=== PATIENT | male | born 1950 | race Caucasian/White ===

== ENCOUNTER 2020-10-16 08:44 | Day surgery (SDC) | payer MEDICARE, OTHER, SELFPAY ==
[2020-10-10 11:29] VITALS: BMI 24.6
--- NOTE | 2020-10-15 10:01 | HO.ANESPROP2 ---
Documented by User: Raiza Bautista 10/15/20 10:02 HPI - Anesthesia Eval Consult details Narrative: 70yo M for Colonoscopy [facility] Past Medical History Medical History Hyperlipidemia Hypertension Prostate cancer Surgical History Surgical History Hx of colonoscopy Social History Social History Are you a primary critical care cns to a significant other at home: No Do you presently have visiting nurse or other home services: No Smoking Status: Never smoker Use of substances other than those prescribed or required for medical reasons: No Have you been hit, kicked, punched, or otherwise hurt by someone within the past year? If so, by whom?: No Advance Directives: No Advance Directives Information Provided: No Advance Directives on File: No Recently lost weight without trying: No Meds Allergies Allergy/AdvReac Type Severity Reaction Status Date / Time No Known Allergies Allergy Verified 10/15/20 10:34 Home Medications Medication Instructions Recorded Confirmed Type amlodipine 5 mg PO DAILY 10/10/20 10/16/20 History atorvastatin 40 mg PO DAILY 10/10/20 10/10/20 History ibuprofen 800 mg PO TID PRN 10/10/20 10/16/20 History lisinopril 10 mg PO DAILY 10/10/20 10/10/20 History Exam Exam Date and Time: October 15, 2020 1001 Height,Weight and Vital Signs: Height 5 ft 4.5 in Weight 66.224 kg Assessment and Plan Assessment Anesthesia Assessment: Chart Reviewed Documented by User: Ernst Wheatley MD 10/16/20 10:20 [facility] Past Medical History Medical History Hyperlipidemia Hypertension Prostate cancer Surgical History Surgical History Hx of colonoscopy Social History Social History Are you a primary critical care cns to a significant other at home: No Do you presently have visiting nurse or other home services: No Smoking Status: Never smoker Use of substances other than those prescribed or required for medical reasons: No Have you been hit, kicked, punched, or otherwise hurt by someone within the past year? If so, by whom?: No Advance Directives: No Advance Directives Information Provided: No Advance Directives on File: No Recently lost weight without trying: No Meds Allergies Allergy/AdvReac Type Severity Reaction Status Date / Time No Known Allergies Allergy Verified 10/15/20 10:34 Home Medications Medication Instructions Recorded Confirmed Type amlodipine 5 mg PO DAILY 10/10/20 10/16/20 History atorvastatin 40 mg PO DAILY 10/10/20 10/10/20 History ibuprofen 800 mg PO TID PRN 10/10/20 10/16/20 History lisinopril 10 mg PO DAILY 10/10/20 10/10/20 History Exam Airway Mallampati Class: II TM Dist: >3cm Neck ROM: Full Loose/Missing/Broken Teeth: No Heart: rrr Lungs: nl Other: ao Assessment and Plan Assessment Anesthesia Assessment: Anesthesia Plan Discussed and Chart Reviewed Final Anesthetic Review NPO: Yes ASA Class: II Final Preanesthetic Review: No Changes in Pt Med Stat, Meds/Allgs Chart Reviewed, Consent Obtained/Reviewed and Anes Risks/Benef Reviewed Patient Risk: Low Procedure Risk: Low Anesthetic Plan Anesthetic Plan: MAC: Disposition: Standard PACU
[2020-10-16 09:41] VITALS: BP 155/82; PULSE 95; RESP 18; TEMP 36.6; O2SAT 98
[2020-10-16] MEDS: Lactated Ringers 1,000 ML 100 ML IVCONT (09:47)
[2020-10-16 12:55] VITALS: BP 93/60; PULSE 91; RESP 20; TEMP 36.8; O2SAT 99
--- NOTE | 2020-10-16 12:59 | P.BOP_ITS ---
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
[2020-10-16 13:10] VITALS: BP 90/57; PULSE 71; RESP 19; TEMP 36.8; O2SAT 98
--- NOTE | 2020-10-16 17:50 | OP_ITS ---
SURGEON: Max Franks MD INDICATIONS: The patient presents for evaluation of colorectal cancer screening. Full consent has been obtained from him for this, including risks of bleeding and perforation. PREOPERATIVE DIAGNOSIS: Colorectal cancer screening. POSTOPERATIVE DIAGNOSIS: PROCEDURE PERFORMED: Colonoscopy to the cecum. ESTIMATED BLOOD LOSS: COMPLICATIONS: ANESTHESIA: Monitored anesthesia care. ASSISTANTS: SPECIMENS: POSTOPERATIVE DIAGNOSES: Colorectal cancer screening, sigmoid diverticulosis, and internal hemorrhoids. DESCRIPTION OF PROCEDURE: The patient was placed in the left lateral decubitus position. The digital rectal exam revealed no abnormalities. The Olympus video pediatric colonoscope was entered into the rectum and advanced easily to the cecum. Once in the cecum, I did identify normal-appearing cecal pouch with appendiceal orifice and a normal-appearing ileocecal valve. The entire cecum and ileocecal valve appeared normal. There was transillumination of light deep in the right lower quadrant. The scope was slowly withdrawn assessing all mucosal surfaces carefully. Preparation was excellent. I did not visualize any sign of polyps, colitis, nor angiodysplasia. There was a mild amount of sigmoid diverticulosis. 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 There was no bleeding. The scope was straightened out and withdrawn from the patient. He tolerated the procedure well and was returned to the recovery area in stable condition. IMPRESSION: 1. Sigmoid diverticulosis. 2. Internal hemorrhoids. 3. 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 PLAN: Given the patient's negative previous colonoscopy, no family history of colon cancer, as well as an age of 70, I do not think he will need any further screening colonoscopy. He will otherwise see me on a p.r.n. basis. MD BERNABE Tran/MONSERRAT / [phone]
== END 2020-10-16 13:55 | disposition home or self-care (01) ==
PROVIDERS: PCP Family Medicine; Visit Provider Internal Medicine
PROC: 0DJD8ZZ Inspection of Lower Intestinal Tract, Via Natural or Artificial Opening Endoscopic (ICD-10-PCS; CPT 45378; principal; 2020-10-16 10:40)
DX: Z12.11 Encounter for screening for malignant neoplasm of colon (principal); K57.30 Diverticulosis of large intestine without perforation or abscess without bleeding; K64.8 Other hemorrhoids; K62.7 Radiation proctitis; I10 Essential (primary) hypertension; Z79.899 Other long term (current) drug therapy
CPT/HCPCS: G0121

== ENCOUNTER → 2021-07-16 14:18 | Outpatient (BNVA) | payer MEDICARE, OTHER, SELFPAY | PROVIDERS: Visit Provider Urology | DX: N52.9 Male erectile dysfunction, unspecified (principal); C61 Malignant neoplasm of prostate; R97.20 Elevated prostate specific antigen [PSA]; E78.5 Hyperlipidemia, unspecified; I10 Essential (primary) hypertension | CPT/HCPCS: 99212 ==

== ENCOUNTER 2022-01-13 08:08 | Outpatient (REF) | payer MEDICARE, OTHER, SELFPAY ==
[2022-01-13 10:36] LABS: Prostate Specific Antigen 0.15 ng/mL (<0.05-4.0)
== END 2022-01-13 08:09 | disposition home or self-care (01) ==
LOC: HO.LAB 08:08
PROVIDERS: PCP Family Medicine; Visit Provider Urology
DX: Z12.5 Encounter for screening for malignant neoplasm of prostate (principal); C61 Malignant neoplasm of prostate
CPT/HCPCS: 36415; 84153

== ENCOUNTER → 2022-01-21 13:43 | Outpatient (BNVA) | payer MEDICARE, OTHER, SELFPAY | PROVIDERS: Visit Provider Urology | DX: Z13.89 Encounter for screening for other disorder (principal) | CPT/HCPCS: Q3014 ==

== ENCOUNTER 2022-05-08 07:07 | Outpatient (REF) | payer MEDICARE, OTHER, SELFPAY ==
[2022-05-08 07:57] LABS: Hematocrit 39.7 % (42.0-52.0); Hemoglobin 13.8 g/dl (14.0-18.0); Mean Corpuscular HGB Conc 34.8 g/dl (31.0-36.0); Mean Corpuscular Hemoglobin 29.9 pg (27.0-33.0); Mean Corpuscular Volume 86.1 fL (80.0-98.0); Mean Platelet Volume 9.8 fL (9.4-12.4); Platelet Count 174 X10*3/uL (160-400); Red Blood Count 4.61 X10*6/uL (4.60-5.80); Red Cell Distribution Width 12.5 % (11.0-16.0); White Blood Count 8.8 X10*3/uL (4.8-10.8)
[2022-05-08 08:02] LABS: Estimated Average Glucose 103 mg/dL; Hemoglobin A1c % 5.2 %
[2022-05-08 08:16] LABS: Alanine Aminotransferase 19 U/L (0-40); Albumin Level 4.4 g/dL (3.5-5.0); Alkaline Phosphatase 115 U/L (39-117); Anion Gap 12 (12-20); Aspartate Amino Transferase 20 U/L (5-37); Bilirubin Total 0.9 mg/dL (0.0-1.0); Blood Urea Nitrogen 10 mg/dL (9-16); Calcium 9.4 mg/dL (8.4-10.2); Carbon Dioxide 26 mmol/L (22-29); Chloride 107 mmol/L (96-108); Cholesterol 120 mg/dL; Estimated Glomerular Filt Rate > 60; Glucose Random 103 mg/dL (60-115); HDL Cholesterol 36 mg/dL; LDL Cholesterol Calculated 62 mg/dl; Potassium 4.5 mmol/L (3.3-5.1); Sodium 140 mmol/L (135-145); Total Protein 7.7 g/dL (6.5-8.0); Triglycerides 114 mg/dL
[2022-05-08 08:36] LABS: Ferritin 97 ng/mL (20-250)
[2022-05-08 09:07] LABS: Vitamin B12 214 pg/mL (200-900)
== END 2022-05-08 07:08 | disposition home or self-care (01) ==
LOC: HO.LAB 07:07
PROVIDERS: PCP Family Medicine; Visit Provider Family Medicine
DX: E78.5 Hyperlipidemia, unspecified (principal); I10 Essential (primary) hypertension; R73.02 Impaired glucose tolerance (oral); Z85.46 Personal history of malignant neoplasm of prostate
CPT/HCPCS: 36415; 80053; 80061; 82607; 82728; 83036; 85027

== ENCOUNTER 2023-01-11 13:39 | Outpatient (REF) | payer MEDICARE, OTHER, SELFPAY | END 2023-01-11 13:40 | disposition home or self-care (01) | LOC: HO.LAB 13:39 | PROVIDERS: PCP Family Medicine; Visit Provider Urology | DX: Z12.5 Encounter for screening for malignant neoplasm of prostate (principal); C61 Malignant neoplasm of prostate; N40.1 Benign prostatic hyperplasia with lower urinary tract symptoms; N13.8 Other obstructive and reflux uropathy | CPT/HCPCS: 36415; 84153 ==

== ENCOUNTER → 2023-01-22 10:21 | Outpatient (BNVA) | payer MEDICARE, SELFPAY | PROVIDERS: PCP Family Medicine; Visit Provider Urology | DX: C61 Malignant neoplasm of prostate (principal); N52.1 Erectile dysfunction due to diseases classified elsewhere; Z79.899 Other long term (current) drug therapy | CPT/HCPCS: 99212 ==

== ENCOUNTER 2023-06-24 08:44 | Outpatient (REF) | payer MEDICARE, SELFPAY ==
[2023-06-24 09:09] LABS: MANUAL DIFF FLAG NO
[2023-06-24 09:44] LABS: Basophils Percent Auto 0.6 % (0-2); Eosinophils Absolute Auto 0.5 X10*3/uL (0.0-0.4); Hematocrit 40.9 % (42.0-52.0); Hemoglobin 13.9 g/dl (14.0-18.0); Imm Gran Abs Auto 0.01 X10*3/uL (0.00-0.03); Imm Gran Pct Auto 0.2 % (0.0-0.4); Lymphocytes Absolute Auto 2.5 X10*3/uL (1.2-4.9); Lymphocytes Percent Auto 39.4 % (20-40); Mean Corpuscular Hemoglobin 29.5 pg (27.0-33.0); Mean Corpuscular Volume 86.8 fL (80.0-98.0); Mean Platelet Volume 10.1 fL (9.4-12.4); Monocytes Absolute Auto 0.4 X10*3/uL (0.1-1.2); Monocytes Percent Auto 6.6 % (2-11); Neutrophils Absolute Auto 2.9 x10*3/uL (2.0-8.3); Neutrophils Percent Auto 45.2 % (45-73); Platelet Count 175 X10*3/uL (160-400); Red Blood Count 4.71 X10*6/uL (4.60-5.80); Red Cell Distribution Width 12.1 % (11.0-16.0); White Blood Count 6.4 X10*3/uL (4.8-10.8)
[2023-06-24 10:19] LABS: Alanine Aminotransferase 20 U/L (0-40); Albumin Level 4.4 g/dL (3.5-5.0); Alkaline Phosphatase 92 U/L (39-117); Anion Gap 14 (12-20); Aspartate Amino Transferase 20 U/L (5-37); Bilirubin Direct 0.3 mg/dL (0.0-0.5); Bilirubin Total 0.8 mg/dL (0.0-1.0); Blood Urea Nitrogen 11 mg/dL (9-16); Calcium 9.7 mg/dL (8.4-10.2); Carbon Dioxide 24 mmol/L (22-29); Chloride 108 mmol/L (96-108); Cholesterol 123 mg/dL; Estimated Glomerular Filt Rate > 60; Glucose Random 105 mg/dL (60-115); HDL Cholesterol 36 mg/dL; LDL Cholesterol Calculated 59 mg/dl; Potassium 3.7 mmol/L (3.3-5.1); Sodium 142 mmol/L (135-145); Total Protein 7.9 g/dL (6.5-8.0); Triglycerides 141 mg/dL
[2023-06-24 11:30] LABS: ~HepC Num1 0.06 S/CO (0.00-0.79); ~Hepatitis C Antibody Nonreactive (Nonreactive)
== END 2023-06-24 08:45 | disposition home or self-care (01) ==
LOC: HO.LAB 08:44
PROVIDERS: PCP Family Medicine; Visit Provider Family Medicine
DX: Z11.59 Encounter for screening for other viral diseases (principal); E78.5 Hyperlipidemia, unspecified; I10 Essential (primary) hypertension
CPT/HCPCS: 36415; 80048; 80061; 80076; 85025; 86803

== ENCOUNTER 2023-09-04 07:03 | Outpatient (REF) | payer MEDICARE, SELFPAY ==
[2023-09-04 07:53] LABS: Anion Gap 13 (12-20); Blood Urea Nitrogen 11 mg/dL (9-16); Calcium 9.6 mg/dL (8.4-10.2); Carbon Dioxide 24 mmol/L (22-29); Chloride 108 mmol/L (96-108); Estimated Glomerular Filt Rate > 60; Glucose Random 102 mg/dL (60-115); Potassium 3.8 mmol/L (3.3-5.1); Sodium 141 mmol/L (135-145)
== END 2023-09-04 07:04 | disposition home or self-care (01) ==
LOC: HO.LAB 07:03
PROVIDERS: PCP Family Medicine; Visit Provider Family Medicine
DX: I10 Essential (primary) hypertension (principal)
CPT/HCPCS: 36415; 80048

== ENCOUNTER 2024-01-22 10:50 | Outpatient (REF) | payer MEDICARE, SELFPAY ==
[2024-01-22 12:21] LABS: Prostate Specific Antigen < 0.10 ng/mL (<0.05-4.0)
== END 2024-01-22 10:51 | disposition home or self-care (01) ==
LOC: HO.LAB 10:50
PROVIDERS: PCP Family Medicine; Visit Provider Urology
DX: C61 Malignant neoplasm of prostate (principal); Z12.5 Encounter for screening for malignant neoplasm of prostate
CPT/HCPCS: 36415; 84153

== ENCOUNTER 2024-01-28 09:09 | Outpatient (AMB) | payer MEDICARE, SELFPAY ==
--- NOTE | 2024-01-28 09:50 | A.OFFVIS_ITS ---
Intake Intake Visit Reasons: 1Y PSA(set)vm to confirm Intake Note: Patient is Present for Follow Up PSA Urology Medication: Sildenafil Antibiotic Allergies:None Blood Thinners: None Allergies No Known Allergies Allergy (Verified 01/22/23 10:48) Medication List - Last Reconciled 01/28/24 by Steve Qiu MD amlodipine 5 mg PO DAILY atorvastatin 40 mg PO DAILY ibuprofen 800 mg PO TID PRN lisinopril 10 mg PO DAILY sildenafil 100 mg PO DAILY PRN 30 days HPI HPI Comments History of Present Illness Details Fady is a pleasant male. 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 Ash Initial management with external beam radiation PSA 08/11 0.2, 01/13 0.15, 01/14 0.1, 02/12 <0.1 Erectile dysfunction Good response to Viagra PFSH Medical History Hyperlipidemia Prostate cancer Hypertension Surgical History Hx of colonoscopy Social History Are you a primary rn intensive care unit to a significant other at home: No Do you presently have visiting nurse or other home services: No Review of Systems Const Denies chills and Denies fever(s) Card Reports no additional complaints and Denies syncope Resp Denies cough GI Denies abdominal pain and Denies heartburn Reports as per HPI and Denies change in libido Neuro Denies syncope Psych Denies change in libido Endo Denies change in libido Physical Exam Const General: cooperative, healthy appearing, comfortable and no acute distress Orientation/consciousness: patient oriented x3 HEENT Face and sinus: Yes normal facial exam Mouth: moist mucous membranes Neck Neck: Yes normal visual inspection, Yes full ROM and Yes trachea midline Chest Chest palpation & inspection: normal inspection of the chest Resp Effort & Inspection: normal respiratory effort, able to speak in complete sentences and no respiratory distress GI Inspection: Yes normal to inspection Back/Spine/Pelvis Cervical Spine: normal cervical lordosis Thoracic/Lumbar Spine: thoracic and lumbar spine normal to inspection Skin General skin exam: no rashes or lesions noted Neuro General: patient oriented x3, gait normal, tone normal and moves all extremities Extrem General: Yes normal to inspection and Yes capillary refill normal Assessment & Plan Assessment & Plan (1) Erectile dysfunction: Code(s): N52.9 - Male erectile dysfunction, unspecified (2) Prostate cancer: Comment: 2010- XRT Code(s): C61 - Malignant neoplasm of prostate Plan Twelve month follow-up PSA Orders: Orders Prostate Specific Antigen 364 Days C61 - Malignant neoplasm of prostate Patient Instructions: Imaging studies, laboratory and physical exam results were discussed and reviewed in detail. No major barriers to patient understanding were identified. An opportunity to ask questions regarding the treatment plan was provided. All questions were answered. The patient expressed understanding and agreement with the above treatment plan. The patient is aware they should contact our office by phone for worsening of their current condition or the appearance of new urologic symptoms. Compliance is encouraged with any medications and followup testing that is ordered. It is a privilege to participate in the urologic care of your patient. If you have any questions or concerns regarding treatment for the above conditions, or other urologic issues, please do not hesitate to contact me. The office telephone contact is [phone]. This note is constructed using voice recognition software. While every effort has been made to ensure accuracy credit risk management director errors may have been included. Yours sincerely, Dr Steve Qiu MD, [facility] - Urology Providers of Expert, Compassionate Care for the Genitourinary System Coding Level of Care Code Est Pt Level 4 (36706) Diagnoses Erectile dysfunction N52.9 Prostate cancer C61
== END 2024-01-28 10:39 | disposition home or self-care (01) ==
PROVIDERS: PCP Family Medicine; Visit Provider Urology
DX: N52.9 Male erectile dysfunction, unspecified (principal); C61 Malignant neoplasm of prostate
CPT/HCPCS: 99213

== ENCOUNTER → 2024-01-28 09:09 | Outpatient (BNVA) | payer MEDICARE, SELFPAY | PROVIDERS: Visit Provider Urology | DX: N52.9 Male erectile dysfunction, unspecified (principal); C61 Malignant neoplasm of prostate | CPT/HCPCS: 99212 ==

== ENCOUNTER 2024-05-24 08:38 | Emergency (ER) | payer MEDICARE, SELFPAY ==
[2024-05-24 08:40] VITALS: BP 136/61; PULSE 54; RESP 16; TEMP 36.1; O2SAT 99; BMI 22.9
[2024-05-24 09:24] LABS: Alanine Aminotransferase 15 U/L (0-40); Albumin Level 4.1 g/dL (3.5-5.0); Alkaline Phosphatase 88 U/L (39-117); Anion Gap 12 (12-20); Aspartate Amino Transferase 18 U/L (5-37); Bilirubin Direct 0.3 mg/dL (0.0-0.5); Bilirubin Total 0.8 mg/dL (0.0-1.0); Blood Urea Nitrogen 13 mg/dL (9-16); Calcium 9.5 mg/dL (8.4-10.2); Carbon Dioxide 21 mmol/L (22-29); Chloride 110 mmol/L (96-108); Creatinine Clr Calc Pharmacy 50.8; Estimated Glomerular Filt Rate > 60; Glucose Random 152 mg/dL (60-115); Lipase 34 U/L (8-78); Potassium 3.7 mmol/L (3.3-5.1); Sodium 139 mmol/L (135-145); Total Protein 7.3 g/dL (6.5-8.0)
[2024-05-24] MEDS: Famotidine 20 MG TABLET PO (09:46)
[2024-05-24 10:18] VITALS: BP 120/68; PULSE 68; RESP 16; O2SAT 99
[2024-05-24 10:36] LABS: Basophils Percent Auto 0.2 % (0-2); Eosinophils Absolute Auto 0.1 X10*3/uL (0.0-0.4); Eosinophils Percent Auto 0.9 % (0-4); Hematocrit 38.1 % (42.0-52.0); Hemoglobin 13.4 g/dl (14.0-18.0); Imm Gran Abs Auto 0.05 X10*3/uL (0.00-0.03); Imm Gran Pct Auto 0.4 % (0.0-0.4); Lymphocytes Absolute Auto 1.2 X10*3/uL (1.2-4.9); Lymphocytes Percent Auto 10.8 % (20-40); Mean Corpuscular HGB Conc 35.2 g/dl (31.0-36.0); Mean Corpuscular Hemoglobin 30.5 pg (27.0-33.0); Mean Corpuscular Volume 86.8 fL (80.0-98.0); Mean Platelet Volume 9.8 fL (9.4-12.4); Monocytes Absolute Auto 0.6 X10*3/uL (0.1-1.2); Monocytes Percent Auto 5.4 % (2-11); Neutrophils Absolute Auto 9.3 x10*3/uL (2.0-8.3); Neutrophils Percent Auto 82.3 % (45-73); Platelet Count 173 X10*3/uL (160-400); Red Blood Count 4.39 X10*6/uL (4.60-5.80); Red Cell Distribution Width 12.1 % (11.0-16.0); White Blood Count 11.3 X10*3/uL (4.8-10.8)
[2024-05-24 10:37] LABS: MANUAL DIFF FLAG NO
[2024-05-24 10:54] LABS: Appearance Urine Clear; Color Urine Yellow; Glucose Urine UA Negative (Negative); Leukocyte Esterase Urine Negative (Negative); Nitrite Urine Negative (Negative); Specific Gravity - Urine >= 1.030 (1.005-1.025); Urine Blood Negative (Negative); Urine Ketones Negative (Negative); Urine Protein Negative (Neg-Trace)
--- NOTE | 2024-05-24 12:03 | ED.ABDPAIN ---
HPI - Abdominal Pain General Chief Complaint: Abdominal Pain Stated Complaint: back pain, chills, nausea Time Seen by Provider: 05/24/24 09:19 Source: patient Mode of arrival: ambulatory Limitations: no limitations History of Present Illness ED Provider: Dr. Espinoza HPI narrative: Patient woke up feeling ok but then had 3 episodes of diarrhea, now with abdominal pain MD elicited complaint: abdominal pain Onset (ago): hour(s) Associated symptoms: diarrhea Related Data Home Medications ?Medication ?Instructions ?Recorded ?Confirmed amlodipine 5 mg tablet 5 mg PO DAILY 10/10/20 01/28/24 atorvastatin 40 mg tablet 40 mg PO DAILY 10/10/20 01/28/24 ibuprofen 800 mg tablet 800 mg PO TID PRN Pain 10/10/20 01/28/24 lisinopril 10 mg tablet 10 mg PO DAILY 10/10/20 01/28/24 Previous Rx's ?Medication ?Instructions ?Recorded sildenafil 100 mg tablet 100 mg PO DAILY PRN sexual 07/16/21 activity 30 days #30 tabs Allergies Allergy/AdvReac Type Severity Reaction Status Date / Time No Known Allergies Allergy Verified 05/24/24 08:40 Review of Systems Review of Systems Yes all other systems are reviewed and are negative Denies Sensory deficit (Neuro) PMFSH Past Medical History Medical History Hyperlipidemia Prostate cancer Hypertension Surgical History Hx of colonoscopy Social History Social History Are you a primary director of primary care to a significant other at home: No Do you presently have visiting nurse or other home services: No Advance Directives: No Advance Directives Information Provided: Yes Physical Exam ED Vital Signs: Vital Signs - 24 hr 05/24/24 08:40 05/24/24 10:18 Temperature 96.9 F Pulse Rate 54 68 Respiratory Rate 16 16 Blood Pressure 136/61 120/68 Pulse Oximetry 99 99 Oxygen Delivery Method Room Air Room Air BMI result Body Mass Index 22.9 Const General: healthy appearing Nutritional Appearance: average body habitus Orientation/consciousness: oriented to person and patient oriented x3 Limitations: no limitations HENMT Head: Yes normal to inspection Ears: external ears normal General nose exam: Normal external nose present Mouth: Normal oral and palatal mucosa present and oropharynx normal Throat: Yes posterior oropharynx normal Eyes General: appearance normal, both eyes and all related structures Neck Neck: Yes normal visual inspection Chest Chest palpation & inspection: normal inspection of the chest Resp Auscultation: clear to auscultation bilaterally Cardio Jugular venous distension: no JVD Rate: regular rate Rhythm: regular rhythm Heart sounds: S1 normal heart sound present and S2 normal heart sound present GI Inspection: Yes normal to inspection Palpation (GI): Soft to palpation, nontender and No hepatosplenomegaly present Auscultation: normal bowel sounds General: Yes no CVA tenderness Back/Spine/Pelvis Back: no CVA tenderness Skin General skin exam: no rashes or lesions noted Neuro General: oriented to person and patient oriented x3 Cranial nerves: Yes CN's II-XII intact bilaterally Motor exam (neuro): 5/5 motor strength present throughout Sensory Exam: No Sensory deficit (Neuro) Extrem General: Yes normal to inspection Psych Appearance: grossly normal Course Reevaluation(s) Reevaluation #1: soft abdomen, normal labs, will dc with enteritis Time: 12:08 Medical Decision Making Differential Diagnosis Differential Diagnoses: The differential diagnosis associated with the presentation includes (diverticulitis, appendicitis, viral enteritis) Admission/Observation Consideration of admission/observation: Escalation of care including admission/observation considered (upon arrival admission was considered) Lab Data 05/24/24 10:23 05/24/24 08:51 Labs: Lab Results 05/24/24 05/24/24 05/24/24 Range/Units 08:51 10:23 10:47 WBC 11.3 H (4.8-10.8) X10*3/uL RBC 4.39 L (4.60-5.80) X10*6/uL Hgb 13.4 L (14.0-18.0) g/dl Hct 38.1 L (42.0-52.0) % MCV 86.8 (80.0-98.0) fL MCH 30.5 (27.0-33.0) pg MCHC 35.2 (31.0-36.0) g/dl RDW 12.1 (11.0-16.0) % Plt Count 173 (160-400) X10*3/uL MPV 9.8 (9.4-12.4) fL Immature Gran % (Auto) 0.4 (0.0-0.4) % Neut % (Auto) 82.3 H (45-73) % Lymph % (Auto) 10.8 L (20-40) % [place] % (Auto) 5.4 (2-11) % Eos % (Auto) 0.9 (0-4) % Baso % (Auto) 0.2 (0-2) % Lymph # (Auto) 1.2 (1.2-4.9) X10*3/uL [place] # (Auto) 0.6 (0.1-1.2) X10*3/uL Eos # (Auto) 0.1 (0.0-0.4) X10*3/uL Baso # (Auto) 0.0 (0.0-0.2) X10*3/uL Abs Immat Gran (auto) 0.05 H (0.00-0.03) X10*3/uL Absolute Neuts (auto) 9.3 H (2.0-8.3) x10*3/uL Absolute Nucleated RBC 0.000 (0.0-0.012) X10*3/uL Nucleated RBC % (auto) 0.0 (0.0-0.2) /100WBC Sodium 139 (135-145) mmol/L Potassium 3.7 (3.3-5.1) mmol/L Chloride 110 H (96-108) mmol/L Carbon Dioxide 21 L (22-29) mmol/L Anion Gap 12 (12-20) BUN 13 (9-16) mg/dL Creatinine 1.05 (0.5-1.4) mg/dL Estim Creat Clear Calc 50.8 Estimated GFR > 60 Random Glucose 152 H (60-115) mg/dL Calcium 9.5 (8.4-10.2) mg/dL Total Bilirubin 0.8 (0.0-1.0) mg/dL Direct Bilirubin 0.3 (0.0-0.5) mg/dL AST 18 (5-37) U/L ALT 15 (0-40) U/L Alkaline Phosphatase 88 (39-117) U/L Total Protein 7.3 (6.5-8.0) g/dL Albumin 4.1 (3.5-5.0) g/dL Lipase 34 (8-78) U/L Urine Color Yellow Urine Appearance Clear Urine pH 6.0 (5.0-9.0) Ur Specific [place] >= 1.030 H (1.005-1.025) Urine Protein Negative (Neg-Trace) mg/dL Urine Glucose (UA) Negative (Negative) mg/dL Urine Ketones Negative (Negative) mg/dL Urine Blood Negative (Negative) Urine Nitrite Negative (Negative) Ur Leukocyte Esterase Negative (Negative) Tests considered The following testing was considered but not selected: CT of abd considered but abdomen soft, no fever normal labs Medications Administered Discontinued Medications Generic Name Dose Route Start Last Admin Trade Name Freq PRN Reason Stop Dose Admin Famotidine 20 mg 05/24/24 09:29 05/24/24 09:46 Famotidine 20 Mg Tablet PO 05/24/24 09:30 20 mg ONCE ONE Administration Discharge Plan Discharge Clinical Impression: Gastroenteritis Patient Disposition: Home, Self-Care Instructions: Gastroenteritis (ED), Acute Diarrhea (ED) Prescriptions: No Action atorvastatin 40 mg Tablet 40 mg PO DAILY ibuprofen 800 mg Tablet 800 mg PO TID PRN (Reason: Pain) amlodipine 5 mg Tablet 5 mg PO DAILY lisinopril 10 mg Tablet 10 mg PO DAILY sildenafil 100 mg tablet 100 mg PO DAILY PRN (Reason: sexual activity) 30 Days Qty: 30 1RF Rx Instructions: administer 60 minutes before intended activity Print Language: Albanian
[2024-05-24 13:11] VITALS: BP 120/68; PULSE 68; RESP 16; TEMP 37; O2SAT 99
== END 2024-05-24 13:11 | disposition home or self-care (01) ==
PROVIDERS: Emergency Provider Emergency Medicine; PCP Family Medicine
DX: K52.9 Noninfective gastroenteritis and colitis, unspecified (principal); R10.9 Unspecified abdominal pain
CPT/HCPCS: 36415; 80053; 81003; 82248; 83690; 85025; 99283

== ENCOUNTER 2024-08-08 08:19 | Outpatient (REF) | payer MEDICARE, SELFPAY ==
[2024-08-08 11:41] LABS: MANUAL DIFF FLAG NO
[2024-08-08 11:55] LABS: Basophils Percent Auto 0.4 % (0-2); Eosinophils Absolute Auto 0.3 X10*3/uL (0.0-0.4); Eosinophils Percent Auto 4.2 % (0-4); Hematocrit 40.7 % (42.0-52.0); Hemoglobin 13.9 g/dl (14.0-18.0); Imm Gran Abs Auto 0.03 X10*3/uL (0.00-0.03); Imm Gran Pct Auto 0.4 % (0.0-0.4); Lymphocytes Absolute Auto 1.9 X10*3/uL (1.2-4.9); Lymphocytes Percent Auto 25.2 % (20-40); Mean Corpuscular HGB Conc 34.2 g/dl (31.0-36.0); Mean Corpuscular Hemoglobin 29.6 pg (27.0-33.0); Mean Corpuscular Volume 86.8 fL (80.0-98.0); Mean Platelet Volume 10.3 fL (9.4-12.4); Monocytes Absolute Auto 0.5 X10*3/uL (0.1-1.2); Monocytes Percent Auto 6.4 % (2-11); Neutrophils Absolute Auto 4.7 x10*3/uL (2.0-8.3); Neutrophils Percent Auto 63.4 % (45-73); Platelet Count 186 X10*3/uL (160-400); Red Blood Count 4.69 X10*6/uL (4.60-5.80); Red Cell Distribution Width 12.4 % (11.0-16.0); White Blood Count 7.4 X10*3/uL (4.8-10.8)
[2024-08-08 11:58] LABS: Estimated Average Glucose 105 mg/dL; Hemoglobin A1c % 5.3 % (<6.0)
[2024-08-08 12:12] LABS: Microalbum/Creatinine Ratio Ur 6.8 ug/mg cr (<30)
[2024-08-08 12:20] LABS: Alanine Aminotransferase 31 U/L (0-40); Albumin Level 4.6 g/dL (3.5-5.0); Alkaline Phosphatase 88 U/L (39-117); Anion Gap 12 (12-20); Aspartate Amino Transferase 31 U/L (5-37); Bilirubin Direct 0.3 mg/dL (0.0-0.5); Bilirubin Total 0.7 mg/dL (0.0-1.0); Blood Urea Nitrogen 13 mg/dL (9-16); Calcium 9.8 mg/dL (8.4-10.2); Carbon Dioxide 26 mmol/L (22-29); Chloride 108 mmol/L (96-108); Cholesterol 127 mg/dL (<200); Estimated Glomerular Filt Rate > 60; Glucose Random 118 mg/dL (60-115); HDL Cholesterol 36 mg/dL (>40); Iron 83 mcg/dL (45-160); LDL Cholesterol Calculated 64 mg/dL (<100); Percent Iron Saturation 31 % (15-50); Potassium 3.8 mmol/L (3.3-5.1); Sodium 142 mmol/L (135-145); Total Iron Binding Capacity 264 mcg/dL (228-428); Total Protein 8.4 g/dL (6.5-8.0); Triglycerides 135 mg/dL (<150); Unsaturated Iron Binding 181 ug/dL; Vitamin B12 360 pg/mL (200-900)
[2024-08-08 12:24] LABS: Ferritin 109 ng/mL (20-250)
== END 2024-08-08 08:20 | disposition home or self-care (01) ==
LOC: HO.HHCL 08:19
PROVIDERS: Visit Provider Family Medicine
DX: I10 Essential (primary) hypertension (principal); D64.9 Anemia, unspecified; R73.9 Hyperglycemia, unspecified
CPT/HCPCS: 36415; 80048; 80061; 80076; 82043; 82570; 82607; 82728; 83036; 83540; 85025

== ENCOUNTER 2024-08-09 08:56 | Outpatient (REF) | payer MEDICARE, SELFPAY ==
--- NOTE | ~2024-08-09 | XR_ITS ---
EXAMINATION: XR SHOULDER, LEFT CLINICAL INFORMATION: Contracture of left shoulder, pain COMPARISON: None available. TECHNIQUE: AP external rotation, Grashey, scapular Y, and axillary views of the left shoulder. FINDINGS: The bones and soft tissues are normal. No fracture. Glenohumeral and acromioclavicular alignment is anatomic with normal joint space. No abnormal soft tissue calcifications. XR/XR shoulder LT min 2V IMPRESSION: Normal left shoulder. Electronically signed by: Meera Hannah MD 08/09/2024 10:54 AM EDT
== END 2024-08-09 08:57 | disposition home or self-care (01) ==
LOC: HO.HHCX 08:56
PROVIDERS: Visit Provider Family Medicine
DX: M62.412 Contracture of muscle, left shoulder (principal); M25.512 Pain in left shoulder; G89.29 Other chronic pain
CPT/HCPCS: 73030

== ENCOUNTER 2024-08-29 14:34 | Outpatient (AMB) | payer MEDICARE, SELFPAY ==
--- NOTE | 2024-08-29 14:35 | MHC.OFFVIS ---
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 The patient states that he aggravated his left shoulder several months ago while lifting a heavy object. Has been doing gentle stretching exercises on his own. He denies any weakness. Has taken ibuprofen which gives him fairly good relief. Allergies No Known Allergies Allergy (Verified 08/29/24 14:37) Medication List - Last Reconciled 08/29/24 by Wilfrid Jones MD amlodipine 5 mg PO DAILY atorvastatin 40 mg PO DAILY ibuprofen 800 mg PO TID PRN lisinopril 10 mg PO DAILY sildenafil 100 mg PO DAILY PRN 30 days PFSH Medical History Hyperlipidemia Prostate cancer Hypertension Surgical History Hx of colonoscopy Social History Are you a primary wound care coordinator to a significant other at home: No Do you presently have visiting nurse or other home services: No Physical Exam Vital Signs: BMI result Body Mass Index 22.8 Const Other: Well-nourished well-developed very friendly male awake alert and oriented x3 in no acute distress Extrem Other: Bilateral upper extremity examination shows good capillary refill, no skin lesions noted, normal sensation light touch Left shoulder examination shows full range of motion when compared to his right shoulder, 4+ out of 5 strength with supraspinatus testing, positive impingement signs, tenderness over his acromioclavicular joint, no instability Results Reviewed Results Reviewed: X-rays of the patient's left shoulder show severe acromioclavicular joint narrowing, a type 2 acromion, no acute bony abnormalities Assessment & Plan Assessment & Plan (1) Left shoulder pain: Code(s): M25.512 - Pain in left shoulder Category: Medical Plan Mr. Osborn presents with intermittent left shoulder discomfort due to impingement syndrome. I had a lengthy discussion with the patient regarding the treatment options. At this point the patient's symptoms are tolerable to him. Will continue with his activity modifications. The do's and don'ts of lifting were discussed at length with the patient. He will follow up with me on an as-needed basis should his symptoms worsen in any way. Feel free to call me at any time should questions regarding his orthopedic management arise. Thank you very much for asking me to see this very friendly gentleman. I spent 20 minutes in reviewing the patient's records and imaging studies, seeing the patient and documenting in the medical record. Coding Level of Care Code New Pt Level 3 (60265) Complex EM visit Add On G2211 Diagnoses Left shoulder pain M25.512
[2024-08-29 14:36] VITALS: BMI 22.8
== END 2024-08-29 15:00 | disposition home or self-care (01) ==
PROVIDERS: PCP Family Medicine; Visit Provider Orthopaedic Surgery
DX: M75.42 Impingement syndrome of left shoulder (principal)
CPT/HCPCS: 99203; G2211

== ENCOUNTER → 2024-08-29 14:34 | Outpatient (BNVA) | payer MEDICARE, SELFPAY | PROVIDERS: PCP Family Medicine; Visit Provider Orthopaedic Surgery | DX: M25.512 Pain in left shoulder (principal) | CPT/HCPCS: 99202 ==

== ENCOUNTER 2025-01-09 13:23 | Outpatient (REF) | payer MEDICARE, SELFPAY ==
--- OUTSIDE RECORDS SUMMARY | 2025-01-09 14:20 | XMS_ITS | Patient Health Record ---
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 Name Role Phone Janene Daly MD Primary Care Provider Rufina Max Mchugh Unavailable [phone] REASON FOR REFERRAL No Information MEDICATIONS Medication SIG (Take, Route, Frequency, Duration) Notes Start Date End Date Status amLODIPine Besylate 5 MG TAKE 1 TABLET B Y MOUTH ONCE DAILY Oral for 30 Active Lisinopril 10 MG TAKE 1 TABLET BY ADRIA TH ONCE DAILY Oral for 30 Active Ibuprofen 800 MG TAKE 1 TABLET THREE TIMES DAILY WITH FOOD NEEDED Oral as needed Active Atorvastatin Calcium 40 MG TAKE 1 TABLET BY MOUTH AT BEDTIME Oral for 30 Active IMMUNIZATIONS Vaccine Route Administration Date Status Comme nts Influenza Unknown 10/03/2020 Refused SOCIAL HISTORY Tobacco Use: Social History Observation Description Date Details (start date - stop date) Never Smoker NA - NA Sex Assigned At : Social History Observation Description Sex Assigned At Unknown Tobacco Use/Smoking Question Answer Notes Patient is a nonsmoker Alcohol Screen Question Answer Notes Did you have a drink containing alcohol in the p ast year? No Points 0 Interpretation Negative PROBLEMS Problem Type ICD Code Onset Dates Problem Status W/U Status Risk SNOMED Code Notes Problem Encounter for screening for malignant neoplasm of colon (Z12.11) Active confirmed Screening for malignant neoplasm of colon (061549136) Problem NSAID long-term use (Z79.1) Active confirmed intermediate manager current use of non-steroidal anti-inflammator y drug (528862100735501 ) Problem Preprocedural examination (Z01.818) Active confirmed Preprocedural examination (042151485796753 ) PLAN OF TREATMENT Future Test Test Name Order Date COLONOSCOPY 10/03/2020 Insurance Providers Payer Name Payer Address Payer Phone Subscriber Number Group Number Insured Name Patient Relationship to Insured Coverage Start Date Coverage End Date [employer]ARE OF [place] [address] [place] [address] [id number] BERNARDA WEBSTER Self - patient is the insured MEDICAL (GENERAL) HISTORY Medical History History ICD Code Hypertension Prostate cancer-2011--XRT Hyperlipidemia Denies NM,DM,CVA,Lung disease,renal dise ase Negative screening colonoscopy in 1999 a 2009 Surgical History Surgery Date(Month/Year)
--- OUTSIDE RECORDS SUMMARY | 2025-01-09 14:20 | XMS_ITS | Clinical Summary ---
Author Organization [facility] Address [address] [place] [address] Care Team Providers Care Rat Exterminator Name Role Phone Unavailable Primary Care Provider Unavailabl e Social History Tobacco Use Types Packs/Day Years Used Date Smoking Tobacco: Never Assessed Sex and Gender Information Value Date Recorded Sex Assigned at Not on file Gender Identity Not on file Sexual Orientation Not on file Plan of Treatment Health Maintenance Due Date Last Done Comments Hepatitis C Virus Screening 1950 DTaP/Tdap/Td Vaccines (1 - Tdap) 1968 Pneumococcal Vaccines 50+ (1 of 1 - PCV) 1999 Zoster (Shingles) Vaccine (1 of 2) 1999 RSV Vaccine 60 years and old er and Patients (1 - 1-dose 75+ series) 2024 COVID-19 Vaccine ( - 2023-2 5 season) 2024 Hepatitis B Vaccines Aged Out No long er eligible based on patient's age to complete this topic
[2025-01-09 16:33] LABS: Anion Gap 11 (12-20); Blood Urea Nitrogen 10 mg/dL (9-16); Calcium 9.5 mg/dL (8.4-10.2); Carbon Dioxide 27 mmol/L (22-29); Chloride 108 mmol/L (96-108); Estimated Glomerular Filt Rate > 60; Glucose Random 102 mg/dL (60-115); Sodium 142 mmol/L (135-145)
== END 2025-01-09 13:24 | disposition home or self-care (01) ==
LOC: HO.HHCL 13:23
PROVIDERS: Visit Provider Family Medicine
DX: I10 Essential (primary) hypertension (principal)
CPT/HCPCS: 36415; 80048

== ENCOUNTER 2025-01-25 06:41 | Outpatient (REF) | payer MEDICARE, SELFPAY ==
--- OUTSIDE RECORDS SUMMARY | 2025-01-25 06:43 | XMS_ITS | Clinical Summary ---
Author Organization [facility] Address [address] [place] [address] Care Team Providers Care Mail Handler Equipment Operator Name Role Phone Unavailable Primary Care Provider [...]
[2025-01-25 08:16] LABS: Prostate Specific Antigen 0.14 ng/mL (<0.05-4.0)
== END 2025-01-25 06:42 | disposition home or self-care (01) ==
LOC: HO.LAB 06:41
PROVIDERS: PCP Family Medicine; Visit Provider Urology
DX: Z12.5 Encounter for screening for malignant neoplasm of prostate (principal); C61 Malignant neoplasm of prostate
CPT/HCPCS: 36415; 84153

== ENCOUNTER 2025-01-29 09:29 | Outpatient (AMB) | payer MEDICARE, SELFPAY ==
--- NOTE | 2025-01-29 09:29 | A.OFFVIS_ITS ---
Intake Visit Reasons: 1y/PSA(set) Intake Note: Patient presents for tele vist follow up on: prostate cancer and psa lab results Urology Medication: Sildenafil Antibiotic Allergies:None Blood Thinners: None PSA: 0.14 Sanitation Associate Required: No Accompanied by: Self / Same As Patient Allergies No Known Allergies Allergy (Verified 01/29/25 09:57) Medication List - Last Reconciled 01/29/25 by KIERA Em-MARYBETH atorvastatin 40 mg PO DAILY lisinopril 30 mg PO DAILY HPI Comments Details: Fady is a pleasant 74-year-old male patient of Dr. Daly. He has a past medical history of hypertension, hyperlipidemia, and prostate cancer. He is being followed up on today via video telehealth for his prostate cancer and erectile dysfunction. In discussion with the patient today reports to be doing and feeling well. He denies having had any bothersome urinary issues or concerns since his last office visit with Dr. Qiu 1 year ago. Recent PSA results reviewed with the patient today 02/13 0.14. He denies urinary urgency, urinary frequency, incontinence, nocturia, hematuria, dysuria, foul smelling urine, changes to urinary stream, flank pain, fever, and or chills. He is happy with his current voiding parameters. In discussion with the patient today regarding his erectile dysfunction he reports this is not currently an issue as he lost his over a year ago and is not sexually active. We discussed PSA remains low will continue with surveillance monitoring. We discussed importance in doing so. He otherwise offers no other issues or concerns at this time. Prostate cancer - radiation therapy completed November 2010 Prostate cancer diagnosed by Dr. Ash Initial management with external beam radiation PSA 08/11 0.2, 01/13 0.15, 01/14 0.1, 02/12 <0.1, 02/13 0.14 Erectile dysfunction Good response to Viagra [facility] Medical History Hyperlipidemia Prostate cancer Hypertension Surgical History Hx of colonoscopy Social History Are you a primary director medicare sales to a significant other at home: No Do you presently have visiting nurse or other home services: No Review of Systems Const All systems reviewed & are unremarkable except as noted in HPI and below Physical Exam Const General: cooperative, healthy appearing, comfortable, no acute distress, well developed, alert and awake Orientation/consciousness: patient oriented x3 Resp Effort & Inspection: normal respiratory effort and able to speak in complete sentences Neuro General: patient oriented x3 Psych Appearance: grossly normal and well kempt Mental Status: mental status grossly normal Speech and movement: Clear speech present Affect: normal affect Attitude: cooperative Thought content: Normal thought content present Insight: Fair insight present (Psych) Judgement: Fair judgement present (Psych) Telehealth Telehealth Telehealth Platform: [employer] Location of provider rendering services: practice address Location of patient: address on file Patient Identification confirmed using: Name, : Yes Telehealth method: video Patient verbally consented to treatment: Yes Patient verbally consented to billing insurance company: Yes Patient informed of any privacy concerns related to visit: Yes Minutes spent on Phone/Video with Pt.: 15 Assessment & Plan Assessment & Plan (1) Prostate cancer: Comment: 2010- XRT Code(s): C61 - Malignant neoplasm of prostate Category: Medical Plan Recent PSA results reviewed the patient today; as noted above. Patient currently denies any bothersome urinary issues or concerns. He reports be happy with current voiding Will continue with surveillance monitoring. Will obtain PSA in 1 year. Follow-up in 1 year with PSA to be completed prior; or sooner with any issues, concerns, and or questions. Orders: Orders Prostate Specific Antigen 1 Year C61 - Malignant neoplasm of prostate Patient Instructions: The patient had an opportunity to ask questions regarding the treatment plan. All questions were answered. Physical exam, labs, and imaging were discussed and reviewed in detail. As well as risks, benefits, and discussion of treatment choices. No major barriers to understanding were identified. The patient expressed understanding and agreement with the above treatment plan. The patient was made aware they should contact our office by phone for worsening of their current condition, the appearance of new symptoms, or with any questions or concerns. Compliance is encouraged with any medications and follow up testing that is ordered. It is a privilege to be allowed the opportunity to participate in? your urological care.? Again, if you have any questions or concerns If you have any questions or concerns please do not hesitate to contact me. The office is [phone]. This note is constructed using voice recognition software. While every effort has been made to ensure accuracy space engineer errors may have been included. Yours sincerely, ELIF Em Coding Level of Care Code Tele Est Pt Level 3 (47956) Complex EM visit Add On G2211 Diagnoses Prostate cancer C61
--- OUTSIDE RECORDS SUMMARY | 2025-01-29 10:14 | XMS_ITS | Patient Health Record ---
Author Organization [facility] Address [address] [place] [address] Care Team Providers Care Utility Tender Carding Name Role Phone Janene Daly MD Primary Care Provider Rufina Max Mchugh Unavailable [phone] Reason For Referral No Information Medications Medication SIG (Take, Route, Frequency, Duration) Notes [...] MOUTH AT BEDTIME Oral for 30 Active Immunizations Vaccine Route Administration Date Status Comme nts Influenza Unknown 10/03/2020 Refused Social History Tobacco Use: Social History Observation Description Date Details (start date - stop date) Never Smoker NA - NA Tobacco Use/Smoking Question Answer Notes Patient is a nonsmoker Alcohol Screen Question Answer Notes Did you have a drink containing alcohol in the p ast year? No Points 0 Interpretation Negative Section Notes: Nonsmoker; no sig alcohol Problems Problem Type SNOMED Code ICD Code Onset Dates Problem Status W/U Status Risk Notes Problem Screening for malignant neoplasm of colon (732276775) Encounter for screening for malignant neoplasm of colon (Z12.11) Active confirmed Problem Preprocedural examination (831381226826571) Preprocedural examination (Z01.818) Active confirmed Problem residential current use of non-steroidal anti-inflammatory drug (531654263520558) NSAID long-term use (Z79.1) Active confirmed Plan Of Treatment Future Test Test Name Order Date COLONOSCOPY 10/03/2020 Insurance Providers Payer Name Payer Address Payer Phone Subscriber Number Group Number Insured Name Patient Relationship to Insured Coverage Start Date Coverage End Date MEDICARE OF [place] [address] [place] [id number] BERNARDA WEBSTER Self - patient is the insured Medical (General) History Medical History History ICD Code Hypertension Prostate cancer-2011--XRT Hyperlipidemia Denies CA,DM,CVA,Lung disease,renal dise ase Negative screening colonoscopy in 1999 a 2009 Surgical History Surgery Date(Month/Year)
--- OUTSIDE RECORDS SUMMARY | 2025-01-29 10:14 | XMS_ITS | Clinical Summary ---
Author Organization [facility] Address [address] [place] [address] Care Team Providers Care Park Guard Name Role Phone Unavailable Primary Care Provider [...]
--- OUTSIDE RECORDS SUMMARY | 2025-01-29 10:14 | XMS_ITS | Encounter Summary ---
Author Organization [employer] Address [address] [place] [address] 7[address] [place] [address] Care Team Providers Care Truck Cleaner Name Role Phone Janene Daly MD Primary Care Provider + [phone] Trisha Hawley PharmD Unavailable Encounter Details Date Type Department Care Team (Late st Contact Info) Description 08/14/2024 Telephone [facility] [address] [place] [address] Trisha Hawley, PharmD [address] [place] [address] Social History Tobacco Use Types Packs/Day Years Used Date Smoking Tobacco: Never Passive Smoke Exposure: Never Smokeless Tobacco: Never Alcohol Use Standard Drinks/Week Comments Never 0 (1 standard drink = 0.6 oz pur e alcohol) Depression Answer Date Recorded Patient Health Questionnaire-9 Score 0 08/07/2024 Patient Health Questionnaire-9 Score 0 08/07/2024 Last PHQ-9: Questionnaire Data Not on file 0 08/07/2024 Housing Stability Answer Date Recorded What is your housing situation today? I have quinton connell 06/23/[address] you li ve. Do you have problems with any of the following? None of the above 06/23/2024 Food Insecurity Answer Date Recorded Within the past 12 months, y ou worried that your food would run out before you got money to buy more: Never True 06/23/2024 Within the past 12 months,th e food you bought just didn't last and you didn't have enough money to get more: Never True 12/2023 Transportation Answer Date Recorded In the past 12 months, has l ack of transportation kept you from medical appts, meetings, work or from getting things needed for daily living? No 06/23/2024 Utilities Answer Date Recorded In the past 12 months, has t he electric, gas, oil or water company threatened to shut off services in your home? No 06/23/2024 Depression Answer Date Recorded Patient Health Questionnaire-2 Score 0 08/07/2024 Internet Access Answer Date Recorded Internet Access Q1 Yes 07/24/2024 Internet Access Q2 Not on file 07/24/2024 Sex and Gender Information Value Date Recorded Sex Assigned at Male 09/21/2022 10:19 AM EDT Legal Sex Male 10:19 AM EDT Gender Identity Male 09/21/2022 10:19 AM EDT Sexual Orientation Straight 09/21/2022 10 :19 AM EDT documented as of this encounter Miscellaneous Notes * Telephone Encounter - Trisha Hawley PharmD - 08/14/2024 8:24 AM EDT Please consider providing a new CDTM referral for HTN which has been pended to this TC note. Thank you! documented in this encounter Plan of Treatment Upcoming Encounters Date Type Department Care Team (Late st Contact Info) Description 02/01/2025 9:30 AM EDT Office Visit [facility] [address] [place] [phone] Janene Daly MD [address] [place] [phone] 02/01/2025 10:30 AM EDT Nurse Only [facility] [address] [place] [phone] 04/03/2025 1:00 PM EDT Medication Management [facility] [address] [place] [address] Trisha Hawley PharmD [address] [place] [phone] documented as of this encounter Goals Goal Patient Goal Type Associated Problems Recent Progress Patient-Stated? Author Blood Pressure < 150/90 Blood Pressure 140/64( 025 1:09 PM EST) No Trisha Khan, PharmD documented as of this encounter Visit Diagnoses Not on filedocumented in this encounter Additional Health Concerns Assessment Noted Time PHQ-9 Depression Total Score: 0 08/07/20 24 9:47 AM EDT documented as of this encounter Care Teams Truck Cleaner Relationship Specialty Start Date End Date Janene Daly MD [address] [place] [address] PCP - General Family Medicine 11/22/18 Trisha Hawley, PharmD [address] [place] [address] Pharmacist Internal Medicine 09/08/23 documented as of this encounter
--- OUTSIDE RECORDS SUMMARY | 2025-01-29 10:14 | XMS_ITS | Encounter Summary ---
Author Organization [employer] Address [address] [facility] 7t [place] [address] Care Team Providers Care Laser Systems Engineer Name Role Phone Janene Daly MD Primary Care Provider + [phone] Trisha Hawley PharmD Unavailable [phone] Encounter Details Date Type Department Care Team (Latest Contact Info) Description 01/09/2025 Travel Social History Tobacco Use Types Packs/Day Years [...] AM EDT documented as of this encounter Plan of Treatment Upcoming Encounters Date Type Department Care Team (Late st Contact Info) Description 02/01/2025 9:30 AM EDT Office Visit [facility] MED[facility]INE [address] [place] [phone] Janene Daly MD [address] [place] [phone] 02/01/2025 10:30 AM EDT Nurse Only [facility] [address] [place] [address] 04/03/2025 1:00 PM EDT Medication Management [address] [address] Trisha Hawley PharmD [address] [place] [phone] documented as of this encounter Goals Goal [...] documented as of this encounter Care Teams Laser Systems Engineer Relationship Specialty Start Date End Date Janene Daly MD [address] [place] [address] PCP - General Family Medicine 11/22/18 Trisha Hawley, KristenD [address] [place] [address] Pharmacist Internal Medicine 09/08/23 documented as of this encounter
--- OUTSIDE RECORDS SUMMARY | 2025-01-29 10:14 | XMS_ITS | Encounter Summary ---
Author Organization [employer] [facility] Address [address] [place] [address] [address] [place] [address] Care Team Providers Care Primary School Principal Name Role Phone Janene Daly MD Primary Care Provider + [phone] Trisha Hawley PharmD Unavailable Encounter Details Date Type Department Care Team (Late Contact Info) Description 06/22/2023 Abstract [facility] [address] [place] [address] Janene Daly MD [address] [place] [address] [phone] Social History Tobacco Use Types Packs/Day Years Used Date Smoking Tobacco: Never Passive Smoke Exposure: Never Smokeless Tobacco: Never Alcohol Use Standard Drinks/Week Comments Never 0 (1 standard drink = 0.6 oz pur e alcohol) Depression Answer Date Recorded Patient Health Questionnaire-2 Score 0 11/30/2022 Sex and Gender Information Value Date Recorded Sex Assigned at Male 09/21/2022 10:19 AM EDT Legal Sex Male 10:19 AM EDT Gender Identity Male 09/21/2022 10:19 AM EDT Sexual Orientation Straight 09/21/2022 10 :19 AM EDT documented as of this encounter Plan of Treatment Upcoming Encounters Date Type Department Care Team (Late Contact Info) Description 02/01/2025 9:30 AM EDT Office Visit [facility] [address] [place] [address] [phone] Janene Daly MD [address] [place] [phone] 02/01/2025 10:30 AM EDT Nurse Only [facility] [address] [place] [address] 04/03/2025 1:00 PM EDT Medication Management [address] [address] Trisha Hawley, Shira [address] [place] [phone] documented as of this encounter Visit Diagnoses Not on filedocumented in this encounter Care Teams Primary School Principal Relationship Specialty Start Date End Date Janene Daly MD [address] [place] [phone] PCP - General Family Medicine 11/22/18 Trisha Hawley, KristenD [address] [place] [phone] Pharmacist Internal Medicine 09/08/23 documented as of this encounter
--- OUTSIDE RECORDS SUMMARY | 2025-01-29 10:15 | XMS_ITS | Encounter Summary ---
Author Organization [employer] [facility] Address [address] [place] [address] [address], [place] [address] Care Team Providers Care Animal Chiropractor Name Role Phone Janene Daly MD Primary Care Provider + [phone] Trisha Hawley PharmD Unavailable Encounter Details Date Type Department Care Team (Late st Contact Info) Description 11/19/2022 Telephone [facility] MED[facility] [address] [place] [phone] Janene Daly MD [address] [place] [address] [phone] Social History Tobacco Use Types Packs/Day Years [...] Description 02/01/2025 9:30 AM EDT Office Visit [facility] [address] [place] [address] [phone] Janene Daly MD [address] [place] [address] [phone] 02/01/2025 10:30 AM EDT Nurse Only [address] [address] 04/03/2025 1:00 PM EDT Medication Management [facility] [address] [place] [address] Trisha Hawley, Shira [address] [place] [address] documented as of this encounter Visit Diagnoses Not on filedocumented in this encounter Care Teams Animal Chiropractor Relationship Specialty Start Date End Date Janene Daly MD [address] [place] [address] PCP - General Family Medicine 11/22/18 Trisha Hawley, Shira [address] [place] [phone] Pharmacist Internal Medicine 09/08/23 documented as of this encounter
--- OUTSIDE RECORDS SUMMARY | 2025-01-29 10:15 | XMS_ITS | Encounter Summary ---
Author Organization [employer] Address [address] [place] [address] 7[address] [place] [address] Care Team Providers Care System Trainer Name Role Phone Janene Daly MD Primary Care Provider +- [phone] Trisha Hawley PharmD Unavailable Encounter Details Date Type Department Care Team (Late st Contact Info) Description 01/09/2025 Orders Only [facility] [address] [place] [address] Janene Daly MD [address] [place], [place] [phone] Social History Tobacco Use Types Packs/Day Years [...] Description 02/01/2025 9:30 AM EDT Office Visit [facility] [address] [place] [phone] Janene Daly MD [address] [place] [phone] 02/01/2025 10:30 AM EDT Nurse Only [address] [address] 04/03/2025 1:00 PM EDT Medication Management [address] [address] Trisha Hawley PharmD [address] [place] [phone] documented as of this encounter Goals Goal Patient Goal Type Associated Problems Recent Progress Patient-Stated? Author Blood Pressure < 150/90 Blood Pressure 140/64( 025 1:09 PM EST) No Trisha Khan PharmD documented as of this encounter Procedures Procedure Name Priority Date/Time Associated Diagnosis Comments BASIC METABOLIC PANEL Routine 01/09/2025 1:26 PM EST documented in this encounter Results * (ABNORMAL) Basic Metabolic Panel (01/09/2025 1:26 PM EST) Sodium 142 135 - 145 mmol/L [facility] Potassium 4.0 3.3 - 5.1 mmol/L [facility] Chloride 108 96 - 108 mmol/L [facility] Carbon Dioxide 27 22 - 29 mmol/L [facility] Anion Gap 11(L) 12 - 20 [facility] Urea Nitrogen (BUN) 10 9 - 16 mg/dL [facility] Creatinine, Serum 1.01 0.5 - 1.4 mg/dL [facility] Estimated Glomerular Filt Rate >60 [facility] Comment:Chronic Kidney Disea se: Estimated GFR < 60 mL/min/1.27u9Dlqrve Kidney Disease: Estimated GFR < 15 mL/min/1.73m2 Glucose 102 60 - 115 mg/dL [facility] Calcium 9.5 8.4 - 10.2 mg/dL [facility] 01/09/2025 1:26 PM EST 01/09/2025 4:04 PM EST us Janene Daly MD LAB BLOOD ORDERABLES Final Result [facility] [address] [place] [address] [phone] documented in this encounter Visit Diagnoses Not on filedocumented in this encounter Additional Health Concerns Assessment Noted Time PHQ-9 Depression Total Score: 0 08/07/20 24 9:47 AM EDT documented as of this encounter Care Teams System Trainer Relationship Specialty Start Date End Date Janene Daly MD [address] [place] [address] PCP - General Family Medicine 11/22/18 Trisha Hawley, Shira [address] [place] [phone] Pharmacist Internal Medicine 09/08/23 documented as of this encounter
--- OUTSIDE RECORDS SUMMARY | 2025-01-29 10:15 | XMS_ITS | Encounter Summary ---
Author Organization [employer] [facility] Address [address] [place] [address] 7[address] [place] [address] Care Team Providers Care Corporate Scheduler Name Role Phone Janene Daly MD Primary Care Provider +- [phone] Trisha Hawley PharmD Unavailable Encounter Details Date Type Department Care Team (Late st Contact Info) Description 11/30/2022 Abstract [facility]INE [address] [place] [address] Janene Daly MD [address] [place] [address] Social History Tobacco Use Types Packs/Day Years [...] Orientation Straight 09/21/2022 10 :19 AM EDT COVID-19 Exposure Response Date Recorded In the last 10 days, have yo u been in contact with someone who was confirmed or suspected to have Coronavirus/COVID-19? No / Unsure 11/30/2022 9:39 AM EST documented as of this encounter Plan of Treatment Upcoming Encounters Date Type Department Care Team (Late st Contact Info) Description 02/01/2025 9:30 AM EDT Office Visit [facility]INE [address] [place] [phone] Janene Daly MD [address] [place] [address] 02/01/2025 10:30 AM EDT Nurse Only [address] [phone] 04/03/2025 1:00 PM EDT Medication Management [facility] [address] [place], [place] [phone] Trisha Hawley, PharmD [address] [place], [place] [phone] documented as of this encounter Procedures Procedure Name Priority Date/Time Associated Diagnosis Comments HEMOGLOBIN A1C Routine 05/08/2022 LIPID PANEL, STANDARD Routine 05/08/2022 BASIC METABOLIC PANEL Routine 05/08/2022 documented in this encounter Results * Hemoglobin A1c (05/08/2022) Pathologist [facility] Hemoglobin A1C 5.2 4.0 - 6.0 % Blood Venous blood specimen / Unknown Historical Provider LAB BLOOD ORDERABLES Pita l Result * (ABNORMAL) Lipid Panel, Standard (05/08/2022) Pathologist [facility] Triglycerides 36(A) 40 - 160 mg/dL Cholesterol 120 0 - 200 mg/dL HDL Cholesterol 62 35 - 70 mg/dL LDL Cholesterol 114 mg/dL Blood Venous blood specimen / Unknown Historical Provider LAB BLOOD ORDERABLES Pita l Result * Basic Metabolic Panel (05/08/2022) Pathologist [facility] Glucose 103 mg/dL Creatinine 1.0 0.6 - 1.3 mg/dL Blood Venous blood specimen / Unknown us Historical Provider LAB BLOOD ORDERABLES Pita l Result documented in this encounter Visit Diagnoses Not on filedocumented in this encounter Care Teams Corporate Scheduler Relationship Specialty Start Date End Date Janene Daly MD [address] [place] [address] PCP - General Family Medicine 11/22/18 Trisha Hawley PharmD [address] [place] [address] Pharmacist Internal Medicine 09/08/23 documented as of this encounter
--- OUTSIDE RECORDS SUMMARY | 2025-01-29 10:15 | XMS_ITS | Encounter Summary ---
Author Organization [employer] Address [address] [place] [address] 7t [place] [address] Care Team Providers Care Billing Supervisor Name Role Phone Janene Daly MD Primary Care Provider + [phone] Trisha Hawley PharmD Unavailable [phone] Encounter Details Date Type Department Care Team (Late st Contact Info) Description 01/25/2025 Orders Only GENERIC EXTERNAL DATA DEPARTMENT Provider, Generic External Data Social History Tobacco Use Types Packs/Day Years [...] Description 02/01/2025 9:30 AM EDT Office Visit [facility] MED[facility]INE [address] [place] [address] Janene Daly MD [address] [place] [address] 02/01/2025 10:30 AM EDT Nurse Only [address] [address] 04/03/2025 1:00 PM EDT Medication Management [address] [address] Trisha Hawley PharmD [address] [place] [phone] documented as of this encounter Goals Goal Patient Goal Type Associated Problems Recent Progress Patient-Stated? Author Blood Pressure < 150/90 Blood Pressure 140/64( 025 1:09 PM EST) No Trisha Khan PharmD documented as of this encounter Procedures Procedure Name Priority Date/Time Associated Diagnosis Comments PSA, TOTAL Routine 01/25/2025 6:59 AM EST documented in this encounter Results * PSA,Total (01/25/2025 6:59 AM EST) Prostate Specific Antigen 0.14 <0.05 - 4.0 ng/mL [facility] Comment:PSA methodology: Zack Jarrett i ChemiluminescentMicroparticle Immunoassay (CMIA) 01/25/2025 6:59 AM EST 01/25/2025 6:59 AM EST us Generic External Data Provider LAB BLOOD ORDERAB LES Final Result Performing Organization Address City/State/[facility] Co de Phone Number [facility] [address] [place] [address] [phone] documented in this encounter Visit Diagnoses Not on filedocumented in this encounter Additional Health Concerns Assessment Noted Time PHQ-9 Depression Total Score: 0 08/07/20 24 9:47 AM EDT documented as of this encounter Care Teams Billing Supervisor Relationship Specialty Start Date End Date Janene Daly MD [address] [place] [address] PCP - General Family Medicine 11/22/18 Trisha Hawley, KristenD [address] [place] [address] Pharmacist Internal Medicine 09/08/23 documented as of this encounter
--- OUTSIDE RECORDS SUMMARY | 2025-01-29 10:15 | XMS_ITS | Clinical Summary ---
Author Organization [employer] [facility] Address [address] [place] [address] 7 [place] [address] Care Team Providers Care Oracle Database Manager Name Role Phone Janene Daly MD Primary Care Provider +- [phone] Trisha Hawley PharmD Unavailable [phone] Allergies No known active allergies Medications atorvastatin (Lipitor) 40 MG tabletIndication s:Dyslipidemia TAKE 1 TABLET BY MOUTH AT BEDTIME 90 tablet 3 4 Active Melatonin 1 MG capsuleIndicatio ns:Insomnia, unspecified type Take 1 tab po 1 hour before bed prn insomnia 30 capsule 2 4 Active lisinopril (Zestril) 30 MG tabletIndication s:Hypertension, unspecified type Take 1 tablet (30 mg) by mouth Once per day. 90 tablet 4 Active Active Problems Patient Care Coordination No te Formatting of this note migh t be different from the original. CDTM HTN with Trisha Hawley, PharmD, [facility] Complex Care Management:Antenna Design Engineer: Maura, Community HealthWorker: Tamiko Problem Noted Date Diagnosed Date Anemia 08/07/2024 Overview (08/07/2024): -ordered routine labs 08/07/24 Assessment & Plan (08/07/2024 8:23 AM EDT): -ordered routine labs 08/07/24 Blood glucose elevated 08/07/2024 Overview (08/07/2024): -ordered routine labs 08/07/24 Assessment & Plan (08/07/2024 8:23 AM EDT): -ordered routine labs 08/07/24 Contracture of muscle of left shoulder Overview (08/07/2024): -ordered XR of L shoulder. 08/07/24 -referred to ortho. 08/07/24 Assessment & Plan (08/07/2024 10:21 AM EDT): -ordered XR of L shoulder. 08/07/24 -referred to ortho. 08/07/24 Insomnia 08/07/2024 Overview (08/07/2024): -will trial low dose of Melatonin prescription 08/07/14 -recommended dark room, no light with no sounds or disturbances. -advised if pt does wake up to not watch TV or listen to music. -discussed trying thunder sounds, white noise or brown noise when he wakes up. Assessment & Plan (08/07/2024 10:25 AM EDT): -will trial low dose of Melatonin prescription 08/07/14 -recommended dark room, no light with no sounds or disturbances. -advised if pt does wake up to not watch TV or listen to music. -discussed trying thunder sounds, white noise or brown noise when he wakes up. Chronic left shoulder pain 08/07/2024 Cardiac risk counseling 03/23/2024 Overview (03/23/2024): Unable to calculate ASCVD risk because cholesterol is < 130 LDL:06/24/23 59 -Tobacco cessation: not applicable -Statin therapy:atorvastatin 40 -Importance of moderate physical activity and nutrition interventions discussed. Preventative health care 06/23/2023 Overview (08/07/2024): -next physical exam due after 08/07/25 -eye care facilitated by [facility]. -dental home is [facility], encouraged to follow up. -health care proxy(Zoroastrian) copied and filed 08/07/24 Assessment & Plan (08/07/2024 10:32 AM EDT): -next physical exam due after 08/07/25 -eye care facilitated by [facility]. -dental home is [facility], encouraged to follow up. -health care proxy(Zoroastrian) copied and filed 08/07/24 Assessment & Plan (06/23/2023 9:49 AM EDT): -next physical exam due after 06/23/2024. -eye care facilitated by [facility]. -dental home is [facility], encouraged to follow up. History of prostate cancer 11/29/2022 Overview (11/29/2022): -diagnosed before 2010 -s/p external beam radation Assessment & Plan (06/23/2023 9:00 AM EDT): -diagnosed before 2010 -s/p external beam radation Assessment & Plan (11/29/2022 10:49 AM EST): -diagnosed before 2010 -s/p external beam radation -followed by Dr. 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 -referred to PT 08/07/24 Dyslipidemia 03/15/2012 Overview (06/23/2023): Lab Results Component Value Date TRIG 36 (A) 05/08/2022 -continue lifestyle modifications Assessment & Plan (06/23/2023 9:00 AM EDT): Lab Results Component Value Date TRIG 36 (A) 05/08/2022 -continue lifestyle modifications Hypertension 11/17/2010 Overview (09/20/2024): -Blood pressure is at goal but pt did not take medication this morning yet. Reports BP at home has been in the 130's systolic. -Continue lifestyle modifications -Continue current medications -hydrochlorothiazide discontinued in past due to hypotension -Referral to CDTM done 06/23/2023. -ordered routine labs 08/07/24 - Per [facility] 09/19/24: For cost saving purposes, discontinue amlodipine 5mg and increase lisinopril to 30mg once daily; patient requests to complete current therapy that was picked up 09/08/24 to prevent additional copayment. This plan will begin Nov 2024 and will complete BMP in 2 weeks following start. Assessment & Plan (08/07/2024 10:28 AM EDT): -Blood pressure is at goal but pt did not take medication this morning yet. Reports BP at home has been in the 130's systolic. -Continue lifestyle modifications -Continue current medications -hydrochlorothiazide discontinued in past due to hypotension -Referral to CDTM done 06/23/2023. -ordered routine labs 08/07/24 Assessment & Plan (06/23/2023 9:48 AM EDT): -Blood pressure is not at goal but Pt did not take medication today. -Continue lifestyle modifications -Continue current medications -hydrochlorothiazide discontinued in past due to hypotension -Referral to CDTM done 06/23/2023. Assessment & Plan (11/29/2022 10:49 AM EST): -hydrochlorothiazide discontinued in past due to hypotension Encounters Date Type Department Care Team Description 01/25/2025 Orders Only GENERIC EXTERNAL DATA DEPARTMENT Provider, Generic External Data 01/22/2025 Patient Outreach [facility] [address] [place] [address] Janene Daly MD Pre-visit Planning (SDOH Screening negative and Tobacco screening negative) 01/09/2025 Orders Only [facility] [address] [place] [address] Janene Daly MD 01/09/2025 Travel from Last 3 Months Immunizations Name Administration Dates Next Due Influenza, High Dose Seasona l, Preservative Free 08/07/2024 Moderna Covid-19 Vaccine 12+ 05/07/2022, 12/17/2021,02/18/2021,01/21 Pfizer Covid-19 Vaccine 12+ Bivalent 11/30/2022 Pneumococcal Conjugate PCV 20 11/30/2022 Pneumococcal Polysaccharide PPSV23 05/07/2015 Tdap 11/30/2022,05/11/2012 Zoster, Recombinant 02/01/2023,11/30/2022 Zoster, live 05/07/2015 Social History Tobacco Use Types Packs/Day Years Used Date Smoking Tobacco: Never Passive Smoke Exposure: Never Smokeless Tobacco: Never Tobacco Cessation:Counseling Given: Not Answered Alcohol Use Standard Drinks/Week Comments Never 0 [...] Orientation Straight 09/21/2022 10 :19 AM EDT Last Filed Vital Signs Vital Sign Reading Time Taken Comments Blood Pressure 140/64 01/09/2025 1:09 PM EST Pulse 72 01/09/2025 1:08 PM EST Temperature 36.7 ??C (98 ??F) 08/09/2024 8:42 AM EDT Respiratory Rate 17 08/09/2024 8:42 AM EDT Oxygen Saturation 99% 08/09/2024 8:42 AM EDT Inhaled Oxygen Concentration - - Weight 61.5 kg (135 lb 9.6 oz) 08/09/2024 8:42 A M EDT Height 162.6 cm (5' 4 ) 08/07/2024 9:45 AM EDT Body Mass Index 23.28 08/07/2024 9:45 AM EDT Plan of Treatment Upcoming Encounters Date Type Department Care Team (Late st Contact Info) Description 02/01/2025 9:30 AM EDT Office Visit [facility] MED[facility]INE [address] [place] [address] Janene Daly MD [address] [place] [address] 02/01/2025 10:30 AM EDT Nurse Only [facility] [address] [place] [address] 04/03/2025 1:00 PM EDT Medication Management [facility] [address] [place] [address] Trisha Hawley, PharmD [address] [place] [address] Health Maintenance Due Date Last Done Comments CT Colonography 1949 Dental Oral Exam 1949 Dental Prophylaxis 1949 Dental X-Ray: Bitewings 1949 Dental X-Ray: Full Mouth 1949 FIT DNA/Cologuard 1949 FIT 1949 FOBT 1949 Sigmoidoscopy 1949 Alcohol/Substance Use Screening 1961 RSV Patients and Patients Aged 60 years or older (1 - 1-dose 75+ series) 2024 COVID-19 Vaccine (2023- season) 2024 11/30/2022, 05/07/2022, 12/17/2021, Additional history exists Depression Screening 08/07/2025 08/07/2024, 08/07/20 24 Tobacco Screening 08/09/2025 08/09/2024 SDOH Screening 01/22/2026 01/22/2025 Lipid Panel 08/08/2029 08/08/2024, 01/2023, 05/08/2022, Additional history exists Colonoscopy 10/16/2030 10/16/2020 Colorectal Cancer Screening 10/16/2030 DTaP/Tdap/Td Vaccines (3 - Td or Tdap) 11/30/2032 11/30/2022, 05/11/2012 Pneumococcal Vaccine: 50+ Years Completed 11/30/2022, 05/07/2015 Zoster Vaccines Completed 02/01/2023, 07/2023, 05/07/2015 Hepatitis C Screening Completed 06/24/2023 Influenza Vaccine Completed 08/07/2024 HIB Vaccines Aged Out No longer eligi ble based on patient's age to complete this topic HPV Vaccines Aged Out No longer eligi ble based on patient's age to complete this topic Hepatitis A Vaccines Aged Out No long er eligible based on patient's age to complete this topic Hepatitis B Vaccines Aged Out No long er eligible based on patient's age to complete this topic IPV Vaccines Aged Out No longer eligi ble based on patient's age to complete this topic Meningococcal Vaccine Aged Out No tiarra norris eligible based on patient's age to complete this topic RSV under 20 months Aged Out No longe r eligible based on patient's age to complete this topic Rotavirus Vaccines Aged Out No longer eligible based on patient's age to complete this topic Goals Goal Patient Goal Type Associated Problems Recent Progress Patient-Stated? Author Blood Pressure < 150/90 Blood Pressure 140/64( 025 1:09 PM EST) No Trisha Khan PharmD Procedures Procedure Name Priority Date/Time Associated Diagnosis Comments PSA, TOTAL Routine 01/25/2025 6:59 AM EST BASIC METABOLIC PANEL Routine 01/09/2025 1:26 PM EST LIPID PANEL, STANDARD Routine 08/08/2024 8:30 AM EDT Primary hypertension HEPATITIS C ANTIBODY REFLEX Routine 06/24/2023 9:07 AM EDT HM COLONOSCOPY Routine 10/16/2020 10:44 AM EST from Last 3 Months or Most Recently Relevant to Health Maintenance Results * PSA,Total (01/25/2025 6:59 AM EST) Prostate Specific Antigen 0.14 <0.05 - 4.0 ng/mL [facility] Comment:PSA methodology: Abb sandra Jarrett i ChemiluminescentMicroparticle Immunoassay (CMIA) 01/25/2025 6:59 AM EST 01/25/2025 6:59 AM EST us Generic External Data Provider LAB BLOOD ORDERAB LES Final Result [facility] [address] [place] [address] [phone] * (ABNORMAL) Basic Metabolic Panel (01/09/2025 1:26 PM EST) Sodium 142 135 - 145 mmol/L [facility] Potassium 4.0 3.3 - 5.1 mmol/L [facility] Chloride 108 96 - 108 mmol/L [facility] Carbon Dioxide 27 22 - 29 mmol/L [facility] Anion Gap 11(L) 12 - 20 [facility] Urea Nitrogen (BUN) 10 9 - 16 mg/dL [facility] Creatinine, Serum 1.01 0.5 - 1.4 mg/dL [facility] Estimated Glomerular Filt Rate >60 [facility] Comment:Chronic Kidney Disea se: Estimated GFR < 60 mL/min/[id number] Kidney Disease: Estimated GFR < 15 mL/min/1.73m2 Glucose 102 60 - 115 mg/dL [facility] Calcium 9.5 8.4 - 10.2 mg/dL [facility] 01/09/2025 1:26 PM EST 01/09/2025 4:04 PM EST us Janene Daly MD LAB BLOOD ORDERABLES Final Result Performing Organization Address City/State/[facility] Co de Phone Number [facility] [address] [place] [phone] * (ABNORMAL) Lipid Panel, Standard (08/08/2024 8:30 AM EDT) Triglycerides 135 <150 mg/dL [facility] Comment:Desirable Triglyceri de: less than 150 mg/dLBorderline High Triglyceride 150-199 mg/dLHigh Triglyceride: 200-499 mg/dLVery High Triglyceride: greater than or equal to 5OO mg/dL Cholesterol 127 <200 mg/dL [facility] Comment:Desirable Cholestero l: less than 200 mg/dLBorderline High Cholesterol: 200-239 mg/dLHigh Cholesterol: greater than 239 mg/dL LDL Cholesterol Calculated 64 <100 mg/dL [facility] Comment:Desirable LDL: less than 100 mg/dLNear Optimal/Above Optimal LDL: 110- 129 mg/dLBorderline High LDL: 130-159 mg/dLHigh LDL: 160-189 mg/dLVery High LDL: greater than or equal to 190 mg/dL HDL Cholesterol 36(L) >40 mg/dL [facility] Comment:Desirable HDL: great er than 40 mg/dL Note: This HDL assay may give artificially low results in patients with liver disease. Blood Venous blood specimen / Unknown 08/08/2024 8:30 AM EDT 08/08/2024 11:36 AM EDT Janene Daly MD LAB BLOOD ORDERABLES Final Result Performing Organization Address [facility] Co de Phone Number [facility] [address] [place] [phone] * Hepatitis C Antibody Reflex (06/24/2023 9:07 AM EDT) Hepatitis C Antibody Nonreactive Nonreactive [facility] Comment:Antibodies to HCV no t detected; does not exclude early acuteHCV infection. 06/24/2023 9:07 AM EDT 06/24/2023 9:07 AM EDT Janene Daly MD LAB BLOOD ORDERABLES Final Result Performing Organization Address [facility] Co de Phone Number [facility] [address] [place] [phone] * Hm Colonoscopy (10/16/2020 10:44 AM EST) Janene Daly MD HEALTH MAINTENANCE Final R esult from Last 3 Months or Most Recently Relevant to Health Maintenance Insurance MEDICARE HSN FULL DENTAL - HSN PARTIAL (MEDICAID) Advance Directives Documents on File Type Date Recorded Patient Fx Artist Expl anation Advance Directives and Living Will 05/31/2016 HEalth Care Proxy 05/31/16 Care Teams Oracle Database Manager Relationship Specialty Start Date End Date Juncos, Janene, MD [address] [place] [address] PCP - General Family Medicine 11/22/18 Trisha Hawley, KristenD [address] [place] [address] Pharmacist Internal Medicine 09/08/23
--- OUTSIDE RECORDS SUMMARY | 2025-01-29 10:15 | XMS_ITS | Encounter Summary ---
Author Organization [employer] [facility] Address [address] [place] [address] [address] [place] [address] Care Team Providers Care Metal Finisher Name Role Phone Janene Daly MD Primary Care Provider + [phone] Trisha Hawley PharmD Unavailable Encounter Details Date Type Department Care Team (Latest Contact Info) Description 03/21/2021 Abstract [facility] CON[facility]S Dental, Provider, DDS Social History Tobacco Use Types Packs/Day Years [...] Description 02/01/2025 9:30 AM EDT Office Visit [facility] [address] [place] [phone] Janene Daly MD [address] [place] [address] 02/01/2025 10:30 AM EDT Nurse Only [facility] [address] [place] [phone] 04/03/2025 1:00 PM EDT Medication Management [facility] [address] [place] [phone] Trisha Hawley, PharmD [address] [place] [address] documented as of this encounter Visit Diagnoses Not on filedocumented in this encounter Care Teams Metal Finisher Relationship Specialty Start Date End Date Janene Daly MD [address] [place] [phone] PCP - General Family Medicine 11/22/18 Trisha Hawley, PharmD [address] [place] [phone] Pharmacist Internal Medicine 09/08/23 documented as of this encounter
--- OUTSIDE RECORDS SUMMARY | 2025-01-29 10:15 | XMS_ITS | Encounter Summary ---
Author Organization [employer] Address [address] [place] [address] [address] [place] [address] Care Team Providers Care Mirror Polisher Name Role Phone Janene Daly MD Primary Care Provider +[phone]- [phone] Trisha Hawley PharmD Unavailable Reason for Visit * Reason Comments Pre-visit Planning SDOH Screening negat john and Tobacco screening negative Encounter Details Date Type Department Care Team (Late st Contact Info) Description 01/22/2025 Patient Outreach [facility] [address] [place], [place] [phone] Janene Daly MD [address] [place], [place] [phone] Pre-visit Planning (SDOH Screening negative and Tobacco screening negative) Social History Tobacco Use Types Packs/Day Years [...] AM EDT documented as of this encounter Progress Notes * Katie Saini - 01/22/2025 10:22 AM EST ANGIE Zimmer placed successful outbound call to patient for pre-visit planning. Patient name and confirmed. Patient confirms appt date and time, and has transportation arrangements. Biggest concern for appointment at this time is no concerns. Patient advised to bring to appointment a photo id and insurance card. Appropriate screenings completed in anticipation of appointment. documented in this encounter Plan of Treatment Upcoming Encounters Date Type Department Care Team (Late st Contact Info) Description 02/01/2025 9:30 AM EDT Office Visit [facility] [address] [place] [phone] Janene Daly MD [address] [place] [address] 02/01/2025 10:30 AM EDT Nurse Only [facility] [address] [place] [address] 04/03/2025 1:00 PM EDT Medication Management [facility] [address] [place] [address] Trisha Hawley PharmD [address] [place] [address] documented as of this encounter Goals Goal Patient Goal Type Associated Problems Recent Progress Patient-Stated? Author Blood Pressure < 150/90 Blood Pressure 140/64( 025 1:09 PM EST) No Trisha Khan PharmD documented as of this encounter Visit Diagnoses Not on filedocumented in this encounter Additional Health Concerns Assessment Noted Time PHQ-9 Depression Total Score: 0 08/07/20 24 9:47 AM EDT documented as of this encounter Care Teams Mirror Polisher Relationship Specialty Start Date End Date Janene Daly MD [address] [place] [address] PCP - General Family Medicine 11/22/18 Trisha Hawley PharmD [address] [place] [address] Pharmacist Internal Medicine 09/08/23 documented as of this encounter
== END 2025-01-29 10:35 | disposition home or self-care (01) ==
LOC: HO.HUSH 09:29
PROVIDERS: PCP Family Medicine; Visit Provider Nurse Practitioner Family
DX: C61 Malignant neoplasm of prostate (principal)
CPT/HCPCS: 99213; G2211

== ENCOUNTER 2025-08-25 07:00 | Outpatient (REF) | payer MEDICARE, MEDICAID, SELFPAY ==
--- OUTSIDE RECORDS SUMMARY | 2025-08-20 14:30 | XMS_ITS | Encounter Summary ---
Author Organization [employer] Address [address] [place] [address] [address] [place] [address] Care Team Providers Care Coal Chute Worker Name Role Phone Real, Janene BELCHER Primary Care Provider +- [phone] Ekta Combs NP Unavailable Reason for Visit * Reason Comments Dentures Bite reg Encounter Details Date Type Department Care Team (Late st Contact Info) Description 08/20/2025 2:30 PM EDT Office Visit [facility] D[facility] [address] [place] [address] Hollis Gifford, ALEJANDRA [address] [place] [address] Social History Tobacco Use Types Packs/Day Years [...] as of this encounter Progress Notes * Hollis Gifford DMD - 08/20/2025 2:30 PM EDT Bite registration of P/P NV: Teeth try in of P/P Grady documented in this encounter Plan of Treatment Upcoming Encounters Date Type Department Care Team (Late st Contact Info) Description 08/30/2025 9:30 AM EDT Office Visit [facility] [address] [place] [address] Hollis Gifford DMD [address] [place] [address] documented as of this encounter Goals Goal Patient Goal Type Associated Problems Recent Progress Patient-Stated? Author Blood Pressure < 150/90 Blood Pressure 138/78( 025 9:35 AM EDT) No Trisha Khan, PharmD documented as of this encounter Procedures Procedure Name Priority Date/Time Associated Diagnosis Comments BITE REGISTRATION Routine 08/20/2025 2:30 PM EDT documented in this encounter Visit Diagnoses Not on filedocumented in this encounter Additional Health Concerns Assessment Noted Time PHQ-9 Depression Total Score: 0 08/07/20 24 9:47 AM EDT documented as of this encounter Care Teams Coal Chute Worker Relationship Specialty Start Date End Date Janene Daly MD [address] [place] [phone] PCP - General Family Medicine 11/22/18 Ekta Combs NP [address] [place] [address] [address] [place] [address] Urology 01/30/25 documented as of this encounter
--- OUTSIDE RECORDS SUMMARY | 2025-08-22 09:30 | XMS_ITS | Encounter Summary ---
Author Organization [employer] Address [address] [place] [address] 7 [place] [address] Care Team Providers Care Special Delivery Clerk Name Role Phone Janene Daly MD Primary Care Provider +- [phone] Ekta Combs CIVIL ENGINEERING PROFESSOR Unavailable Reason for Visit * Reason Comments Follow-up HTN Encounter Details Date Type Department Care Team (Late st Contact Info) Description 08/22/2025 9:30 AM EDT Office Visit [facility] MEDICINE [address] [place] [address] Janene Daly MD [address] [place] [address] Primary hypertension (Primary Dx); Dyslipidemia; History of prostate cancer; Encounter for vaccination; Encounter for immunization; Anemia, unspecified type; Blood glucose elevated; Preventative health care Social History Tobacco Use Types Packs/Day Years Used Date Smoking Tobacco: Never Passive Smoke Exposure: Never Smokeless Tobacco: Never Alcohol Use Standard Drinks/Week Comments Never 0 (1 standard drink = 0.6 oz pur e alcohol) Depression Answer Date Recorded Patient Health Questionnaire-9 Score 0 08/22/2025 Patient Health Questionnaire-9 Score 0 08/22/2025 Last PHQ-9: Questionnaire Data Not on file 1 Housing Stability Answer Date Recorded What is [...] Date Recorded Patient Health Questionnaire-2 Score 0 08/22/2025 Internet Access Answer Date Recorded Internet Access Q1 Yes 07/24/2024 Internet Access Q2 Not on file 07/24/2024 Sex and Gender Information Value Date Recorded Sex Assigned at Male 09/21/2022 10:19 AM EDT Legal Sex Male 10:19 AM EDT Gender Identity Male 09/21/2022 10:19 AM EDT Sexual Orientation Straight 09/21/2022 10 :19 AM EDT documented as of this encounter Last Filed Vital Signs Vital Sign Reading Time Taken Comments Blood Pressure 138/78 08/22/2025 9:35 AM EDT Pulse 70 08/22/2025 9:14 AM EDT Temperature 36.3 C (97.3 F) 08/22/2025 9:14 AM EDT Respiratory Rate 20 08/22/2025 9:14 AM EDT Oxygen Saturation 99% 08/22/2025 9:14 AM EDT Inhaled Oxygen Concentration - - Weight 62.1 kg (136 lb 12.8 oz) 08/22/2025 9:14 AM EDT Height 162.6 cm (5' 4 ) 08/22/2025 9:14 AM EDT Body Mass Index 23.48 08/22/2025 9:14 AM EDT documented in this encounter Functional Status * Over the past 2 weeks, how often have you been bothered by any of the following problems? Question Answer Date of Assessment Author Patient Health Questionnaire-2 Score 0 11/2024 9:15 AM EDT Katie Narayan MA * Little interest or pleasure in doing things Answer Date of Assessment Author Not at all 08/22/2025 9:15 AM ANTHONY Narayan, As ROSE atkinson * Feeling down, depressed, or hopeless Answer Date of Assessment Author Not at all 08/22/2025 9:15 AM ANTHONY Narayan, As ROSE atkinson * Trouble falling or staying asleep, or sleeping too much Answer Date of Assessment Author Not at all 08/22/2025 9:15 AM ANTHONY Narayan, As ROSE atkinson * Feeling tired or having little energy Answer Date of Assessment Author Not at all 08/22/2025 9:15 AM EDTyrel Narayan, As ROSE atkinson * Poor appetite or overeating Answer Date of Assessment Author Not at all 08/22/2025 9:15 AM ANTHONY Narayan, As ROSE atkinson * Feeling bad about yourself - or that you are a failure or have let yourself or your family down Answer Date of Assessment Author Not at all 08/22/2025 9:15 AM ANTHONY Narayan, As ROSE atkinson * Trouble concentrating on things, such as reading the newspaper or watching television Answer Date of Assessment Author Not at all 08/22/2025 9:15 AM ANTHONY Narayan, As ROSE atkinson * Moving or speaking so slowly that other people could have noticed? Or the opposite - being so fidgety or restless that you have been moving around a lot more than usual. Answer Date of Assessment Author Not at all 08/22/2025 9:15 AM ANTHONY Narayan, As ROSE atkinson * Thoughts that you would be better off or hurting yourself in some way Answer Date of Assessment Author Not at all 08/22/2025 9:15 AM ANTHONY Narayan, As ROSE atkinson * Patient Health Questionnaire-9 Score Answer Date of Assessment Author 0 08/22/2025 9:15 AM ANTHONY Narayan, As ROSE atkinson documented as of this encounter Progress Notes * Janene Daly MD - 08/22/2025 9:30 AM EDT Marcy Shrestha is a 75 y.o. male who presents to the office today for a comprehensive medical exam. Mr. Osborn has no concerns today. He is eating well. He supplements his diet with protein shakes when he is not taking eggs and meat. He takes a creatinine supplement to assist with muscle building.He lifts weights and does cardio exercise regularly. He is very active in his shinto. Social History Tobacco: denied Drugs: none Alcohol: No Sexuality: Denies current sexual activity Suicide/Depression: The patient denies any present symptoms of depression or anxiety. Review of Systems Constitutional: Negative for fever and unexpected weight change. Respiratory: Negative for shortness of breath. Cardiovascular: Negative for chest pain. Gastrointestinal: Negative for abdominal pain. Genitourinary: Negative for difficulty urinating. Current Medications[1] Allergies[2] Medical History[3] Surgical History[4] Family History[5] Objective Visit Vitals BP 138/78 Pulse 70 Temp 97.3 ??F (36.3 ??C) (Temporal) Resp 20 Ht 5' 4 (1.626 m) Wt 136 lb 12.8 oz (62.1 kg) SpO2 99% BMI 23.48 kg/m?? Smoking Status Never BSA 1.67 m?? Physical Exam Constitutional: Appearance: Normal appearance. Cardiovascular: Rate and Rhythm: Normal rate and regular rhythm. Heart sounds: Normal heart sounds. Pulmonary: Effort: Pulmonary effort is normal. Breath sounds: Normal breath sounds. Abdominal: General: Abdomen is flat. Palpations: Abdomen is soft. Tenderness: There is no abdominal tenderness. Musculoskeletal: Cervical back: Normal range of motion and neck supple. Lymphadenopathy: Cervical: No cervical adenopathy. Skin: General: Skin is warm and dry. Neurological: Mental Status: Mental status is at baseline. Psychiatric: Behavior: Behavior normal. 75 y.o. male physical exam. Assessment & Plan Primary hypertension -Blood pressure is at goal -graduated Collaborative Drug Therapy Managment Program with our PharmDLOUIE. 03/2025 -Continue lifestyle modifications -Continue current medications -hydrochlorothiazide discontinued in past due to hypotension Orders: Albumin, Random Urine W/Creatinine; Future Basic Metabolic Panel; Future Dyslipidemia Lab Results Component Value Date CHOL 127 08/08/2024 CHOL 123 06/24/2023 CHOL 120 05/08/2022 TRIG 135 08/08/2024 TRIG 141 06/24/2023 TRIG 36 (A) 05/08/2022 HDL 36 (L) 08/08/2024 HDL 36 06/24/2023 HDL 62 05/08/2022 LDLCHOLCAL 64 08/08/2024 LDLCHOLCAL 59 06/24/2023 LDL 114 05/08/2022 -continue lifestyle modification Orders: Hepatic Function Panel; Future Lipid Panel, Standard; Future History of prostate cancer -diagnosed before 2010 -s/p external beam radiation Lab Results Component Value Date PSA 0.14 01/25/2025 PSA <0.10 01/22/2024 PSA 0.10 01/11/2023 -seen by Giovany Combs with [facility] Urology 01/30/25, follow up 1 year Encounter for vaccination Orders: COVID-19 VACCINE [id number] (Comirnaty) 12 yrs + Encounter for immunization Orders: FLU VACCINE TRIVALENT HIGH DOSE [id number] (Fluzone) 65 yrs + Anemia, unspecified type Orders: CBC auto differential; Future Ferritin; Future Iron And Total Iron Binding Capacity; Future Vitamin B12 (Cobalamin) and Folate Panel, Serum; Future Blood glucose elevated Orders: Hemoglobin A1c; Future Preventative health care -next physical exam due after 08/22/26 -eye care facilitated by [facility] -dental home is [facility], encouraged to follow up -health care proxy (Yazdanism) copied and filed 08/07/24 Physical exam -Normal growth and development. -Anticipatory guidance discussed. -Preventative care / harm reduction discussed. Follow up in about 6 months (around 02/20/2026) for htn. 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 -referred to PT 08/07/24 Disease of thyroid gland Dyslipidemia 03/15/2012 Lab Results Component Value Date TRIG 36 (A) 05/08/2022 -continue lifestyle modifications History of high cholesterol History of prostate cancer 11/29/2022 -diagnosed before 2010 -s/p external beam radation Hypertension [4] Past Surgical History: Procedure Laterality Date PROSTATE BIOPSY [5] Family History Problem Relation Name Age of Onset Lung cancer Mother Colon cancer Father documented in this encounter Miscellaneous Notes * Assessment & Plan Note - Janene Daly MD - 08/22/2025 9:30 AM EDT Associated Problem(s): Dyslipidemia Lab Results Component Value Date CHOL 127 08/08/2024 CHOL 123 06/24/2023 CHOL 120 05/08/2022 TRIG 135 08/08/2024 TRIG 141 06/24/2023 TRIG 36 (A) 05/08/2022 HDL 36 (L) 08/08/2024 HDL 36 06/24/2023 HDL 62 05/08/2022 LDLCHOLCAL 64 08/08/2024 LDLCHOLCAL 59 06/24/2023 LDL 114 05/08/2022 -continue lifestyle modification Orders: Hepatic Function Panel; Future Lipid Panel, Standard; Future * Assessment & Plan Note - Janene Daly MD - 08/22/2025 9:30 AM EDT Associated Problem(s): Hypertension -Blood pressure is at goal -graduated Collaborative Drug Therapy Managment Program with our PharmD, LOUIE. 03/2025 -Continue lifestyle modifications -Continue current medications -hydrochlorothiazide discontinued in past due to hypotension Orders: Albumin, Random Urine W/Creatinine; Future Basic Metabolic Panel; Future * Assessment & Plan Note - Janene Daly MD - 08/22/2025 9:30 AM EDT Associated Problem(s): History of prostate cancer -diagnosed before 2010 -s/p external beam radiation Lab Results Component Value Date PSA 0.14 01/25/2025 PSA <0.10 01/22/2024 PSA 0.10 01/11/2023 -seen by Giovany Combs with [facility] Urology 01/30/25, follow up 1 year * Assessment & Plan Note - Janene Daly MD - 08/22/2025 9:30 AM EDT Associated Problem(s): Preventative health care -next physical exam due after 08/22/26 -eye care facilitated by [facility] -dental home is [facility], encouraged to follow up -health care proxy (Yazdanism) copied and filed 08/07/24 * Assessment & Plan Note - Janene Daly MD - 08/22/2025 9:30 AM EDT Associated Problem(s): Anemia Orders: CBC auto differential; Future Ferritin; Future Iron And Total Iron Binding Capacity; Future Vitamin B12 (Cobalamin) and Folate Panel, Serum; Future * Assessment & Plan Note - Janene Daly MD - 08/22/2025 9:30 AM EDT Associated Problem(s): Blood glucose elevated Orders: Hemoglobin A1c; Future documented in this encounter Plan of Treatment Upcoming Encounters Date Type Department Care Team (Late st Contact Info) Description 08/30/2025 9:30 AM EDT Office Visit [facility] ADULT DENTAL [address] [place] [address] Hollis Gifford, DMD [address] [place] [address] Scheduled Orders Name Type Priority Associated Diagnoses Orde r Schedule Albumin, Random Urine W/Creatinine Lab Routine Primary hypertension Expected: 08/22/2025 (Approximate), Expires: 08/22/2026 Hepatic Function Panel Lab Routine Dyslipidemia Expected: 08/22/2025 (Approximate), Expires: 08/22/2026 Lipid Panel, Standard Lab Routine Dyslipidemia Expected: 08/22/2025 (Approximate), Expires: 08/22/2026 Hemoglobin A1c Lab Routine Blood glucose elevated Expected: 08/22/2025 (Approximate), Expires: 08/22/2026 Basic Metabolic Panel Lab Routine Primary hypertension Expected: 08/22/2025 (Approximate), Expires: 08/22/2026 CBC auto differential Lab Routine Anemia, unspecified type Expected: 08/22/2025 (Approximate), Expires: 08/22/2026 Ferritin Lab Routine Anemia, unspecified type Expected: 08/22/2025, Expires: 08/22/2026 Iron And Total Iron Binding Capacity Lab Routine Anemia, unspecified type Expected: 08/22/2025, Expires: 08/22/2026 Vitamin B12 (Cobalamin) and Folate Panel, Serum Lab Routine Anemia, unspecified type Expected: 08/22/2025, Expires: 08/22/2026 documented as of this encounter Goals Goal Patient Goal Type Associated Problems Recent Progress Patient-Stated? Author Blood Pressure < 150/90 Blood Pressure 138/78( 025 9:35 AM EDT) No RiteshsTrisha Molina, PharmD documented as of this encounter Visit Diagnoses Diagnosis Primary hypertension- Primary Unspecified essential hypertension Dyslipidemia Other and unspecified hyperlipidemia History of prostate cancer Personal history of malignant neoplasm of prostate Encounter for vaccination Encounter for immunization Anemia, unspecified type Blood glucose elevated Other abnormal glucose Preventative health care Routine general medical examination at a health care facility documented in this encounter Additional Health Concerns Assessment Noted Time PHQ-9 Depression Total Score: 0 08/22/20 25 9:15 AM EDT documented as of this encounter Care Teams Special Delivery Clerk Relationship Specialty Start Date End Date Janene Daly MD [address] [place] [address] PCP - General Family Medicine 11/22/18 Ekta Combs NP [address] [place] [address] [address] [place] [address] Urology 01/30/25 documented as of this encounter
--- OUTSIDE RECORDS SUMMARY | 2025-08-25 07:04 | XMS_ITS | Encounter Summary ---
Author Organization [facility] Address [address] [place] [address] [address] [place] [address] Care Team Providers Care Power Distributor Name Role Phone Janene Daly MD Primary Care Provider +1- [phone] Trisha Hawley PharmD Unavailable Ekta Combs ENROLLMENT CONSULTANT Unavailable Encounter Details Date Type Department Care Team (Late st Contact Info) Description 11/19/2022 Telephone [facility] MEDICINE [address] [place] [id number] Janene Daly MD [address] [place] [address] Social History Tobacco Use Types Packs/Day Years [...] Description 08/30/2025 9:30 AM EDT Office Visit [facility] ADULT DENTAL [address] [place] [address] Hollis Gifford DMD [address] [place] [address] documented as of this encounter Visit Diagnoses Not on filedocumented in this encounter Care Teams Power Distributor Relationship Specialty Start Date End Date Janene Daly MD [address] [place] [address] PCP - General Family Medicine 11/22/18 Trisha Hawley, KristenD [address] [place] [address] Pharmacist Internal Medicine 09/08/23 04/03/25 Ekta Combs NP [address] [place] [address] Drive [address] [place] [address] Urology 01/30/25 documented as of this encounter
--- OUTSIDE RECORDS SUMMARY | 2025-08-25 07:04 | XMS_ITS | Patient Health Record ---
Author Organization [facility] Address [address] [place] [address] Care Team Providers Care Exercise Physiologist Certified Name Role Phone Janene Daly MD Primary Care Provider Rufina Max Mchugh Unavailable [phone] Reason For Referral No Information Medications Medication [...] Problem Screening for malignant neoplasm of colon (453071909) Encounter for screening for malignant neoplasm of colon (Z12.11) Active confirmed Problem Preprocedural examination (819132270865009) Preprocedural examination (Z01.818) Active confirmed Problem custodial current use of non-steroidal anti-inflammatory drug (505941334870889) NSAID long-term use (Z79.1) Active confirmed Plan Of Treatment Future Test Test Name Order Date COLONOSCOPY 10/03/2020 Insurance Providers Payer Name Payer Address Payer Phone Subscriber Number Group Number Insured Name Patient Relationship to Insured Coverage Start Date Coverage End Date MEDICARE OF [place] [address] [place] [id number] BERNARDA WEBSTER Self - patient is the insured Medical (General) History Medical History History ICD Code Hypertension Prostate cancer-2011--XRT Hyperlipidemia Denies OR,DM,CVA,Lung disease,renal dise ase Negative screening colonoscopy in 1999 a 2009 Surgical History Surgery Date(Month/Year)
--- OUTSIDE RECORDS SUMMARY | 2025-08-25 07:04 | XMS_ITS | Encounter Summary ---
Author Organization [employer] Address [address] [place] [address] [address] [place] [address] Care Team Providers Care Information Technology Architect Name Role Phone Janene Daly MD Primary Care Provider + [phone] Trisha Hawley PharmD Unavailable [phone]- [phone] Ekta Combs MECHANICAL DESIGN DRAFTER Unavailable Encounter Details Date Type Department Care Team (Late st Contact Info) Description 06/22/2023 Abstract [facility] MEDICINE [address] [place], [place] [phone] Janene Daly MD [address] [place], [place] [phone] Social History Tobacco Use Types Packs/Day Years [...] Description 08/30/2025 9:30 AM EDT Office Visit [facility] ADULT DENTAL [address] [place] [address] Hollis Gifford, DMD [address] [place] [address] documented as of this encounter Visit Diagnoses Not on filedocumented in this encounter Care Teams Information Technology Architect Relationship Specialty Start Date End Date Janene Daly MD [address] [place] [address] PCP - General Family Medicine 11/22/18 Trisha Hawley, KristenD [address] [place] [address] Pharmacist Internal Medicine 09/08/23 04/03/25 Ekta Combs NP [address] [place] [address] Urology 01/30/25 documented as of this encounter
--- OUTSIDE RECORDS SUMMARY | 2025-08-25 07:04 | XMS_ITS | Encounter Summary ---
Author Organization [employer] Address [address] [place] [address] [address] [place] [address] Care Team Providers Care Sba Underwriter Name Role Phone Hayes, Janene BELCHER Primary Care Provider + [phone] Trisha Hawley PharmD Unavailable [phone] Ekta Combs DECKHAND FISHING VESSEL Unavailable Reason for Visit * Reason Comments Med Refill Encounter Details Date Type Department Care Team (Late st Contact Info) Description 02/20/2025 Refill [facility] MEDICINE [address] [place] [address] Trisha Hawley, PharmD [address] [place] [address] Hypertension, unspecified type Social History Tobacco Use Types Packs/Day Years [...] Description 08/30/2025 9:30 AM EDT Office Visit [facility] ADULT DENTAL [address] [place] [address] Hollis Gifford, ALEJANDRA [address] [place] [address] documented as of this encounter Goals Goal Patient Goal Type Associated Problems Recent Progress Patient-Stated? Author Blood Pressure < 150/90 Blood Pressure 138/78( 025 9:35 AM EDT) No Piers-Gambl eTrisha, PharmD documented as of this encounter Visit Diagnoses Diagnosis Hypertension, unspecified type documented in this encounter Additional Health Concerns Assessment Noted Time PHQ-9 Depression Total Score: 0 08/07/20 24 9:47 AM EDT documented as of this encounter Care Teams Sba Underwriter Relationship Specialty Start Date End Date Janene Daly MD [address] [place] [address] PCP - General Family Medicine 1/1/19 Trisha Hawley, KristenD [address] [place] [address] Pharmacist Internal Medicine 09/08/23 04/03/25 Ekta Combs NP [address] [place] [address] Urology 01/30/25 documented as of this encounter
--- OUTSIDE RECORDS SUMMARY | 2025-08-25 07:04 | XMS_ITS | Clinical Summary ---
Author Organization [employer] Address [address] [place] [address] 7t [place] [address] Care Team Providers Care Sports Editor Name Role Phone Janene Daly MD Primary Care Provider +- [phone] Ekta Combs CASE MANAGEMENT SOCIAL WORKER Unavailable Allergies No known active allergies Medications lisinopril (Zestril) 30 MG tabletIndication s:Hypertension, unspecified type Take 1 tablet (30 mg) by mouth Once per day. 90 tablet 3 5 Active atorvastatin (Lipitor) 40 MG tabletIndication s:Dyslipidemia TAKE 1 TABLET BY MOUTH DAILY AT BEDTIME 90 tablet 5 Active amoxicillin (Amoxil) 500 MG capsule Take 1 capsule (500 mg) by mouth every 8 (eight) hours for 7 days. 21 capsule 5 07/27/20 25 Active Problems Patient Care Coordination No te Formatting of this note migh t be different from the original. CDTM HTN with Kristen YapD, [facility] Complex Care Management:Interactive Marketing Strategist: [facility] HealthWorker: Tamiko Problem Noted Date Diagnosed Date Anemia 08/07/2024 Overview (08/20/2025): Lab Results Component Value Date FERRITIN 109 08/08/2024 HGB 13.9 (L) 08/08/2024 HGB 13.4 (L) 05/24/2024 -ordered routine labs 08/07/24 Assessment & Plan (08/22/2025 9:37 AM EDT): Orders: CBC auto differential; Future Ferritin; Future Iron And Total Iron Binding Capacity; Future Vitamin B12 (Cobalamin) and Folate Panel, Serum; Future Assessment & Plan (08/07/2024 8:23 AM EDT): -ordered routine labs 08/07/24 Blood glucose elevated 08/07/2024 Overview (08/20/2025): Lab Results Component Value Date HGBA1C 5.3 08/08/2024 HGBA1C 5.2 05/08/2022 GLUCOSE 102 01/09/2025 Assessment & Plan (08/22/2025 9:37 AM EDT): Orders: Hemoglobin A1c; Future Assessment & Plan (08/07/2024 8:23 AM EDT): -ordered routine labs 08/07/24 Contracture of muscle of left shoulder Overview (08/20/2025): -ordered XR of L shoulder. 08/07/24 -referred to ortho 08/07/24 Assessment & Plan (08/07/2024 10:21 AM [...] or brown noise when he wakes up. Cardiac risk counseling 03/23/2024 Overview (03/23/2024): Unable to calculate ASCVD risk because cholesterol is < 130 LDL:06/24/23 59 -Tobacco cessation: not applicable -Statin therapy:atorvastatin 40 -Importance of moderate physical activity and nutrition interventions discussed. Preventative health care 06/23/2023 Overview (08/22/2025): -next physical exam due after 08/22/26 -eye care facilitated by [facility] -dental home is [facility], encouraged to follow up -health care proxy (Faith) copied and filed 08/07/24 Assessment & Plan (08/22/2025 9:37 AM EDT): -next physical exam due after 08/22/26 -eye care facilitated by [facility] -dental home is [facility], encouraged to follow up -health care proxy (Faith) copied and filed 08/07/24 Assessment & Plan (08/07/2024 10:32 AM EDT): -next physical exam due after 08/07/25 -eye care facilitated by [facility]. -dental home is [facility], encouraged to follow up. -health care proxy(Faith) copied and filed 08/07/24 Assessment & Plan (06/23/2023 9:49 AM EDT): -next physical exam due after 06/23/2024. -eye care facilitated by [facility]. -dental home is [facility], encouraged to follow up. History of prostate cancer 11/29/2022 Overview (01/30/2025): -diagnosed before 2010 -s/p external beam radiation Lab Results Component Value Date PSA 0.14 01/25/2025 PSA <0.10 01/22/2024 PSA 0.10 01/11/2023 -seen by Giovany Combs with [facility] 01/30/25, follow up 1 year Assessment & Plan (08/22/2025 9:37 AM EDT): -diagnosed before 2010 -s/p external beam radiation Lab Results Component Value Date PSA 0.14 01/25/2025 PSA <0.10 01/22/2024 PSA 0.10 01/11/2023 -seen by Giovany Combs with [facility] 01/30/25, follow up 1 year Assessment & Plan (06/23/2023 9:00 AM EDT): -diagnosed before 2010 -s/p external beam radation Assessment & Plan (11/29/2022 10:49 AM EST): -diagnosed before 2010 -s/p external beam radation -followed by Dr. Qiu, last seen 01/2022 -PSA 0.15 01/13/2022 Refusal of blood transfusion s as patient is Denominational 11/29/2022 Overview (11/29/2022): -Health Care Proxy in [...] -referred to PT 08/07/24 Dyslipidemia 03/15/2012 Overview (08/20/2025): Lab Results Component Value Date CHOL 127 08/08/2024 CHOL 123 06/24/2023 CHOL 120 05/08/2022 TRIG 135 08/08/2024 TRIG 141 06/24/2023 TRIG 36 (A) 05/08/2022 HDL 36 (L) 08/08/2024 HDL 36 06/24/2023 HDL 62 05/08/2022 LDLCHOLCAL 64 08/08/2024 LDLCHOLCAL 59 06/24/2023 LDL 114 05/08/2022 -continue lifestyle modification Assessment & Plan (08/22/2025 9:37 AM EDT): Lab Results Component Value Date CHOL 127 08/08/2024 CHOL 123 06/24/2023 CHOL 120 05/08/2022 TRIG 135 08/08/2024 TRIG 141 06/24/2023 TRIG 36 (A) 05/08/2022 HDL 36 (L) 08/08/2024 HDL 36 06/24/2023 HDL 62 05/08/2022 LDLCHOLCAL 64 08/08/2024 LDLCHOLCAL 59 06/24/2023 LDL 114 05/08/2022 -continue lifestyle modification Orders: Hepatic Function Panel; Future Lipid Panel, Standard; Future Assessment & Plan (06/23/2023 9:00 AM EDT): Lab Results Component Value Date TRIG 36 (A) 05/08/2022 -continue lifestyle modifications Hypertension 11/17/2010 Overview (08/22/2025): -Blood pressure is at goal -graduated Collaborative Drug Therapy Managment Program with our PharmLOUIE [place]. 03/2025 -Continue lifestyle modifications -Continue current medications -hydrochlorothiazide discontinued in past due to hypotension Assessment & Plan (08/22/2025 9:37 AM EDT): -Blood pressure is at goal -graduated Collaborative Drug Therapy Managment Program with our KristenDLOUIE. 03/2025 -Continue lifestyle modifications -Continue current medications -hydrochlorothiazide discontinued in past due to hypotension Orders: Albumin, Random Urine W/Creatinine; Future Basic Metabolic Panel; Future Assessment & Plan (06/13/2025 11:31 PM EDT): Elevated BP today has not yet take BP meds ,used to f w CDTM for HNT but stopped given had wnl Bps ,states home BP is <140/90 at home ,possibly elevated BP today associated w pain and not taking BP meds yet Advised to monitor BP at home if several elevated Bps > 140/90 to call clinic to schedule f up apt w CDTM Assessment & Plan (02/01/2025 10:18 AM EDT): -Blood pressure is at goal but Reports BP at home has been in the 130's systolic. -Continue lifestyle modifications -Continue current medications -hydrochlorothiazide discontinued in past due to hypotension - Per CDTM RPH 09/19/24: For cost saving purposes, discontinue amlodipine [...] -hydrochlorothiazide discontinued in past due to hypotension Resolved Problems Problem Noted Date Diagnosed Date Resolved Date Tooth infection 06/13/2025 08/20/2025 Assessment & Plan (06/13/2025 11:32 PM EDT): -Basic metabolic 12/2024 wnl There is small amount of purulence coming from lower frontal tooth with swelling of gingiva and redness -prescribed Augmentin BID x 7 days -advised tylenol PRN and for more severe pain Ibuprofen 400 mg BID Q 8 h -will hold on XR with just 1 week of symptoms ,afebrile -I called dentist at [facility] today and they gave pt an apt for today at 2h30 pm Chronic left shoulder pain 08/07/2024 0 08/20/2025 Encounters Date Type Department Care Team Description 08/22/2025 9:30 AM EDT Office Visit [facility] MEDICINE [address] [place] [phone] Janene Daly MD Primary hypertension (Primary Dx); Dyslipidemia; History of prostate cancer; Encounter for vaccination; Encounter for immunization; Anemia, unspecified type; Blood glucose elevated; Preventative health care 08/22/2025 Travel 08/20/2025 2:30 PM EDT Office Visit [facility] ADULT DENTAL [address] [place] [phone] Hollis Gifford DMD 08/14/2025 Patient Outreach [facility] [address] [place] [phone] Janene Daly MD Pre-visit Planning (SDOH screening completed on 01/22/2025) 08/10/2025 2:30 PM EDT Office Visit [facility] ADULT DENTAL [address] [place] [phone] Hollis Gifford DMD 07/20/2025 8:00 AM EDT Office Visit [facility] ADULT DENT[facility] [address] [place] [phone] Hollis Gifford DMD 07/20/2025 Telephone [facility] [address] [place] [phone] Hollis Gifford DMD 06/24/2025 Refill [facility] [address] [place] [phone] Edith Tejeda MD Dyslipidemia 06/13/2025 2:30 PM EDT Office Visit [facility] ADULT DENTAL [address] [place] [phone] Hollis Gifford DMD 06/13/2025 9:00 AM EDT Office Visit [facility] [address] [place] [address] Edith Tejeda MD Tooth infection (Primary Dx); Hypertension, unspecified type 06/13/2025 Travel 06/07/2025 Telephone [facility] [address] [place] [address] Janene Daly MD August recall from Last 3 Months Immunizations Immunization Administration Dates Next Due Influenza, High Dose Seasona l, Preservative Free 08/22/2025,08/07/2024 Moderna Covid-19 Vaccine 12+ 05/07/2022, 12/17/2021,02/18/2021,01/21 Pfizer Covid-19 Vaccine 12+ 08/22/2025 Pfizer Covid-19 Vaccine 12+ Bivalent 11/30/2022 Pneumococcal Conjugate PCV 20 11/30/2022 Pneumococcal Polysaccharide PPSV23 05/07/2015 RSV Bivalent 02/01/2025 Tdap 11/30/2022,05/11/2012 Zoster, Recombinant 02/01/2023,11/30/2022 Zoster, live 05/07/2015 Family History Medical History Relation Name Comments Colon cancer Father Lung cancer Mother Relation Name Status Comments Father Mother Social History Tobacco Use Types Packs/Day Years [...] your housing situation today? I have quinton sing 06/23/[address] you li [...] Mass Index 23.48 08/22/2025 9:14 AM EDT Plan of Treatment Upcoming Encounters Date Type Department Care Team (Late st Contact Info) Description 08/30/2025 9:30 AM EDT Office Visit [facility] ADULT DENTAL [address] [place] [address] Hollis Gifford DMD [address] [place] [address] Health Maintenance Due Date Last Done Comments Dental Oral Exam 1950 Dental Prophylaxis 1950 Dental X-Ray: Bitewings 1950 Dental X-Ray: Full Mouth 1950 SDOH Screening 01/22/2026 01/22/2025 COVID-19 Vaccine ( season) 2026 08/22/2025, 11/30/2022, 05/07/2022, Additional history exists Alcohol/Substance Use Screening 08/22/2026 08/22/2025 Depression Screening 08/22/2026 08/22/2025, 08/22/20 Tobacco Screening 08/22/2026 08/22/2025 Lipid Panel 08/08/2029 08/08/2024, 01/2023, 05/08/2022, Additional history exists DTaP/Tdap/Td Vaccines (3 - Td or Tdap) 11/30/2032 11/30/2022, 05/11/2012 Colonoscopy Discontinued 10/16/2020 Colorectal Cancer Screening Discontinued Pneumococcal Vaccine: 50+ Years Completed 11/30/2022, 05/07/2015 Zoster Vaccines Completed 02/01/2023, 07/2023, 05/07/2015 Hepatitis C Screening Completed 06/24/2023 RSV Patients and Patients Aged 60 years or older Completed 02/01/2025 Influenza Vaccine Completed 08/22/2025, 08/07/2024 CT Colonography Discontinued FIT DNA/Cologuard Discontinued FIT Discontinued FOBT Discontinued HIB Vaccines Aged Out No longer eligi [...] patient's age to complete this topic Meningococcal B Vaccine Aged Out No l onger eligible based on patient's age to complete this topic Meningococcal Vaccine Aged Out No tiarra norris eligible based on patient's age to complete this topic RSV under 20 months Aged Out No longe r eligible based on patient's age to complete this topic Rotavirus Vaccines Aged Out No longer eligible based on patient's age to complete this topic Sigmoidoscopy Discontinued Goals Goal Patient Goal Type Associated Problems Recent Progress Patient-Stated? Author Blood Pressure < 150/90 Blood Pressure 138/78(10/01/2 025 9:35 AM EDT) No Trisha Khan PharmD Procedures Procedure Name Priority Date/Time Associated Diagnosis Comments BITE REGISTRATION Routine 08/20/2025 2:3 0 PM EDT DENTURE IMPRESSION Routine 08/10/2025 2: 30 PM EDT CASE PRESENTATION, DETAILED AND EXTENSIVE TREATMENT PLANNING Routine 07/20/2025 8:00 AM EDT 23 EXTRACTION, ERUPTED TOOTH OR EXPOSED ROOT (ELEVATION/FORCEPS REMOVAL) Routine 07/20/2025 8:00 AM EDT 25 EXTRACTION Routine 07/20/2025 12:00 AM EDT CASE PRESENTATION, DETAILED AND EXTENSIVE TREATMENT PLANNING Routine 06/13/2025 2:30 PM EDT INTRAORAL - PERIAPICAL FIRST RADIOGRAPHIC IMAGE Routine 06/13/2025 2:30 PM EDT PALLIATIVE (EMERGENCY) TREATMENT OF DENTAL PAIN - MINOR PROCEDURE Routine 06/13/2025 2:30 PM EDT LIPID PANEL, STANDARD Routine 08/08/2024 8:30 AM EDT Primary hypertension HEPATITIS C ANTIBODY REFLEX Routine 06/24/2023 9:07 AM EDT HM COLONOSCOPY Routine 10/16/2020 10:44 AM EST from Last 3 Months or Most Recently Relevant to Health Maintenance Results * (ABNORMAL) Lipid Panel, Standard (08/08/2024 8:30 AM EDT) Triglycerides 135 <150 mg/dL [facility] Comment:Desirable Triglyceri de: less than 150 mg/dLBorderline High Triglyceride 150-199 mg/dLHigh Triglyceride: 200-499 mg/dLVery High Triglyceride: greater than or equal to 5OO mg/dL Cholesterol 127 <200 mg/dL [facility] Comment:Desirable Cholestero l: less than 200 mg/dLBorderline High Cholesterol: 200-239 mg/dLHigh Cholesterol: greater than 239 mg/dL LDL Cholesterol Calculated 64 <100 mg/dL [facility] Comment:Desirable LDL: less than 100 mg/dLNear Optimal/Above Optimal LDL: 110- 129 mg/dLBorderline High LDL: 130-159 mg/dLHigh LDL: 160-189 mg/dLVery High LDL: greater than or equal to 190 mg/dL HDL Cholesterol 36(L) >40 mg/dL [facility] Comment:Desirable HDL: great er than 40 mg/dL Note: This HDL assay may give artificially low results in patients with liver disease. Blood Venous blood specimen / Unknown 08/08/2024 8:30 AM EDT 08/08/2024 11:36 AM EDT Janene Daly MD LAB BLOOD ORDERABLES Final Result Performing Organization Address [facility] Co de Phone Number [facility] [address] [place] [phone] * Hepatitis C Antibody Reflex (06/24/2023 9:07 AM EDT) Hepatitis C Antibody Nonreactive Nonreactive [facility] Comment:Antibodies to HCV no t detected; does not exclude early acuteHCV infection. 06/24/2023 9:07 AM EDT 06/24/2023 9:07 AM EDT Janene Daly MD LAB BLOOD ORDERABLES Final Result Performing Organization Address [facility] Co de Phone Number [facility] [address] [place] [phone] * Hm Colonoscopy (10/16/2020 10:44 AM EST) Janene Daly MD HEALTH MAINTENANCE Final R esult from Last 3 Months or Most Recently Relevant to Health Maintenance Insurance MEDICARE HSN FULL DENTAL - HSN FULL (MEDICAID) Advance Directives Documents on File Type Date Recorded Patient Lna Expl anation Advance Directives and Living Will 05/31/2016 HEalth Care Proxy 05/31/16 Care Teams Sports Editor Relationship Specialty Start Date End Date Malika, MD Janene [address] [place] [phone] PCP - General Family Medicine 11/22/18 Ekta Combs NP [address] [place] [address] Drive [address] [place] [address] Urology 01/30/25
--- OUTSIDE RECORDS SUMMARY | 2025-08-25 07:04 | XMS_ITS | Encounter Summary ---
Author Organization [employer] Address [address] [facility] [address] [place] [address] Care Team Providers Care Idea Man Name Role Phone [place], Janene BELCHER Primary Care Provider + [phone] Trisha Hawley PharmD Unavailable [phone] Ekta Combs SORT MANAGER Unavailable Encounter Details Date Type Department Care Team (Late st Contact Info) Description 08/14/2024 Telephone [facility] [address] [place], [place] [phone] Trisha Hawley, PharmD [address] [place] [address] Social History Tobacco Use Types Packs/Day Years [...] Description 08/30/2025 9:30 AM EDT Office Visit [facility] ADULT DENTAL [address] [place] [address] Hollis Gifford, DMD [address] [place] [address] documented as of this encounter Goals Goal Patient Goal Type Associated Problems Recent Progress Patient-Stated? Author Blood Pressure < 150/90 Blood Pressure 138/78( 025 9:35 AM EDT) No Trisha Khan PharmD documented as of this encounter Visit Diagnoses Not on filedocumented in this encounter Additional Health Concerns Assessment Noted Time PHQ-9 Depression Total Score: 0 08/07/20 24 9:47 AM EDT documented as of this encounter Care Teams Idea Man Relationship Specialty Start Date End Date Janene Daly MD [address] [place] [address] PCP - General Family Medicine 11/22/18 Trisha Hawley, PharmD [address] [place] [address] Pharmacist Internal Medicine 09/08/23 04/03/25 Ekta Combs NP [address] [place] [address] Drive [address] [place] [address] Urology 01/30/25 documented as of this encounter
--- OUTSIDE RECORDS SUMMARY | 2025-08-25 07:04 | XMS_ITS | Clinical Summary ---
Author Organization [facility] Address [address] [place] [address] Care Team Providers Care Regional Operations Director Name Role Phone Unavailable Primary Care Provider Unavailabl e Social History Tobacco Use Types Packs/Day Years Used Date Smoking Tobacco: Never Assessed Sex and Gender Information Value Date Recorded Sex Assigned at Not on file Legal Sex Male 1:37 PM EDT Gender Identity Not on file Sexual Orientation Not on file Plan of Treatment Health Maintenance Due Date Last Done Comments Advance Care Planning 1950 Hepatitis C Virus Screening 1950 DTaP/Tdap/Td Vaccines (1 - Tdap) 1968 Pneumococcal Vaccines 50+ (1 of 1 - PCV) 1999 Zoster (Shingles) Vaccine (1 of 2) 1999 RSV Vaccine 60 years and old er and Patients (1 - 1-dose 75+ series) 2024 COVID-19 Vaccine (2023-2 5 season) 2025 Hepatitis B Vaccines Aged Out No long er eligible based on patient's age to complete this topic
--- OUTSIDE RECORDS SUMMARY | 2025-08-25 07:04 | XMS_ITS | Encounter Summary ---
Author Organization [facility] Address [address] [place] [address] [address] [place] [address] Care Team Providers Care Pot Puncher Name Role Phone Janene Daly MD Primary Care Provider + [phone] Trisha Hawley PharmD Unavailable [phone]- [phone] Ekta Combs CAT CRACKER OPERATOR Unavailable Encounter Details Date Type Department Care Team (Latest Contact Info) Description 03/21/2021 Abstract [facility] CONVERSIONS Dental, Provider, DDS Social History Tobacco [...] Description 08/30/2025 9:30 AM EDT Office Visit [facility] ADULT DENTAL [address] [place] [address] Hollis Gifford DMD [address] [place] [address] documented as of this encounter Visit Diagnoses Not on filedocumented in this encounter Care Teams Pot Puncher Relationship Specialty Start Date End Date Janene Daly MD [address] [place], [place] [phone] PCP - General Family Medicine 11/22/18 Trisha Hawley, Shira [address] [place] [phone] Pharmacist Internal Medicine 09/08/23 04/03/25 Etka Combs NP [address] [place] [address] Drive [address] [place] [address] Urology 01/30/25 documented as of this encounter
--- OUTSIDE RECORDS SUMMARY | 2025-08-25 07:05 | XMS_ITS | Encounter Summary ---
Author Organization [employer] Address [address] [place] [address] [address]t [place] [address] Care Team Providers Care Aluminum Boats Assembler Name Role Phone Janene Daly MD Primary Care Provider + [phone] Trisha Hawley PharmD Unavailable [phone] Ekta Combs DEVELOPER EVANGELIST Unavailable Encounter Details Date Type Department Care Team (Late st Contact Info) Description 11/30/2022 Abstract [facility] MEDICINE [address] [place], [place] [phone] Janene Daly MD [address] [place], [place] [phone] Social History Tobacco Use Types Packs/Day Years [...] AM EST documented as of this encounter Functional Status * Over the past 2 weeks, how often have you been bothered by any of the following problems? Question Answer Date of Assessment Author Little interest or pleasure in doing things Not at all 11/30/2022 9:52 AM Katie Howell [place] Feeling down, depressed, or hopeless Not at all 11/30/2022 9:52 AM Katie Howell MA Patient Health Questionnaire -2 Score 0 11/30/2022 9:52 AM Katie Howell [place] documented as of this encounter Plan of Treatment Upcoming Encounters Date Type Department Care Team (Late st Contact Info) Description 08/30/2025 9:30 AM EDT Office Visit [facility] AD[facility] [address] [place] [address] Hollis Gifford, DMD [address] [place] [address] documented as of this encounter Procedures Procedure Name Priority Date/Time Associated Diagnosis Comments HEMOGLOBIN A1C Routine 05/08/2022 LIPID PANEL, STANDARD Routine 05/08/2022 BASIC METABOLIC PANEL Routine 05/08/2022 documented in this encounter Results * Hemoglobin A1c (05/08/2022) Pathologist [facility] Hemoglobin A1C 5.2 4.0 - 6.0 % Blood Venous blood specimen / Unknown Historical Provider LAB BLOOD ORDERABLES Pita l Result * (ABNORMAL) Lipid Panel, Standard (05/08/2022) Pathologist [facility] Triglycerides 36(A) 40 - 160 mg/dL Cholesterol 120 0 - 200 mg/dL HDL Cholesterol 62 35 - 70 mg/dL LDL Cholesterol 114 mg/dL Blood Venous blood specimen / Unknown Historical Provider LAB BLOOD ORDERABLES Pita l Result * Basic Metabolic Panel (05/08/2022) Glucose 103 mg/dL Creatinine 1.0 0.6 - 1.3 mg/dL Blood Venous blood specimen / Unknown us Historical Provider LAB BLOOD ORDERABLES Pita l Result documented in this encounter Visit Diagnoses Not on filedocumented in this encounter Care Teams Aluminum Boats Assembler Relationship Specialty Start Date End Date Janene Daly MD [address] [place] [address] PCP - General Family Medicine 11/22/18 Trisha Hawley PharmD [address] [place] [address] Pharmacist Internal Medicine 09/08/23 04/03/25 Ekta Combs NP [address] [place] [address] Urology 01/30/25 documented as of this encounter
--- OUTSIDE RECORDS SUMMARY | 2025-08-25 07:05 | XMS_ITS | Encounter Summary ---
Author Organization [employer] Address [address] [place] [address] Care Team Providers Care Operator Specialist Communications Name Role Phone [place], Janene BELCHER Primary Care Provider +- [phone] Ekta Combs NP Unavailable Encounter Details Date Type Department Care Team (Latest Contact Info) Description 08/22/2025 Travel Social History Tobacco Use Types Packs/Day [...] AM EDT documented as of this encounter Functional Status * Over the past 2 weeks, how often have you been bothered by any of the following problems? Question Answer Date of Assessment Author Patient Health Questionnaire-2 Score 0 11/2024 9:15 AM [facility] Katie Narayan MA * Little interest or pleasure in doing things Answer Date of Assessment Author Not at all 08/22/2025 9:15 AM Julian Sewell MA * Feeling down, depressed, or hopeless Answer Date of Assessment Author Not at all 08/22/2025 9:15 AM Julian Sewell MA * Trouble falling or staying asleep, or sleeping too much Answer Date of Assessment Author Not at all 08/22/2025 9:15 AM Julian Sewell MA * Feeling tired or having little energy Answer Date of Assessment Author Not at all 08/22/2025 9:15 AM Julian Sewell MA * Poor appetite or overeating Answer Date of Assessment Author Not at all 08/22/2025 9:15 AM Julian Sewell MA * Feeling bad about yourself - or that you are a failure or have let yourself or your family down Answer Date of Assessment Author Not at all 08/22/2025 9:15 AM Julian Sewell MA * Trouble concentrating on things, such as reading the newspaper or watching television Answer Date of Assessment Author Not at all 08/22/2025 9:15 AM Julian Sewell MA * Moving or speaking so slowly that other people could have noticed? Or the opposite - being so fidgety or restless that you have been moving around a lot more than usual. Answer Date of Assessment Author Not at all 08/22/2025 9:15 AM EDT Julian Narayan MA * Thoughts that you would be better off or hurting yourself in some way Answer Date of Assessment Author Not at all 08/22/2025 9:15 AM EDT Julian Narayan MA * Patient Health Questionnaire-9 Score Answer Date of Assessment Author 0 08/22/2025 9:15 AM EDT Julian Narayan MA documented as of this encounter Plan of Treatment Upcoming Encounters Date Type Department Care Team (Late st Contact Info) Description 08/30/2025 9:30 AM EDT Office Visit [facility] [address] [place] [address] Hollis Gifford, DMD [address] [place] [address] documented as of this encounter Goals Goal Patient Goal Type Associated Problems Recent Progress Patient-Stated? Author Blood Pressure < 150/90 Blood Pressure 138/78( 025 9:35 AM EDT) No Trisah Khan, PharmD documented as of this encounter Visit Diagnoses Not on filedocumented in this encounter Additional Health Concerns Assessment Noted Time PHQ-9 Depression Total Score: 0 08/22/20 25 9:15 AM EDT documented as of this encounter Care Teams Operator Specialist Communications Relationship Specialty Start Date End Date Janene Daly MD [address] [place] [address] PCP - General Family Medicine 11/22/18 Ekta Combs NP [address] [place] [address] Urology 01/30/25 documented as of this encounter
[2025-08-25 07:15] LABS: MANUAL DIFF FLAG NO
[2025-08-25 08:15] LABS: Hematocrit 37.3 % (42.0-52.0); Hemoglobin 13.2 g/dl (14.0-18.0); Imm Gran Abs Auto 0.02 X10*3/uL (0.00-0.03); Imm Gran Pct Auto 0.3 % (0.0-0.4); Lymphocytes Absolute Auto 2.1 X10*3/uL (1.2-4.9); Mean Corpuscular HGB Conc 35.4 g/dl (31.0-36.0); Mean Corpuscular Hemoglobin 30.3 pg (27.0-33.0); Mean Corpuscular Volume 85.7 fL (80.0-98.0); NRBC Abs Auto 0.000 X10*3/uL (0.0-0.012); NRBC Pct Auto 0.0 /100WBC (0.0-0.2); Platelet Count 152 X10*3/uL (160-400); Red Blood Count 4.35 X10*6/uL (4.60-5.80); White Blood Count 6.1 X10*3/uL (4.8-10.8)
[2025-08-25 08:51] LABS: Alanine Aminotransferase 25 U/L (0-40); Albumin Level 4.5 g/dL (3.5-5.0); Alkaline Phosphatase 85 U/L (39-117); Anion Gap 9 (12-20); Aspartate Amino Transferase 26 U/L (5-37); Blood Urea Nitrogen 15 mg/dL (9-16); Calcium 9.2 mg/dL (8.4-10.2); Carbon Dioxide 27 mmol/L (22-29); Chloride 110 mmol/L (96-108); Cholesterol 119 mg/dL (<200); Estimated Glomerular Filt Rate > 60; HDL Cholesterol 35 mg/dL (>40); Iron 53 mcg/dL (45-160); Percent Iron Saturation 24 % (15-50); Potassium 4.2 mmol/L (3.3-5.1); Sodium 142 mmol/L (135-145); Total Iron Binding Capacity 221 mcg/dL (228-428); Total Protein 7.5 g/dL (6.5-8.0); Triglycerides 96 mg/dL (<150); Unsaturated Iron Binding 168 ug/dL
[2025-08-25 09:08] LABS: Ferritin 125 ng/mL (20-250)
[2025-08-25 09:16] LABS: Folate 7.9 ng/mL (> or = 4.0); Vitamin B12 240 pg/mL (200-900)
[2025-08-25 10:15] LABS: Microalbum/Creatinine Ratio Ur 9.2 ug/mg cr (<30)
== END 2025-08-25 07:01 | disposition home or self-care (01) ==
LOC: HO.LAB 07:00
PROVIDERS: PCP Family Medicine; Visit Provider Family Medicine
DX: I10 Essential (primary) hypertension (principal); E78.5 Hyperlipidemia, unspecified; D64.9 Anemia, unspecified; R73.9 Hyperglycemia, unspecified
CPT/HCPCS: 36415; 80048; 80061; 80076; 82043; 82570; 82607; 82728; 82746; 83036; 83540; 85025